=== PATIENT | female | born 1940 | race Caucasian/White ===

== ENCOUNTER 2018-05-03 13:36 | Inpatient (IN) | payer MEDICARE, MEDICAID ==
[~2018-05-03] VITALS: Ht 142.2 cm; Wt 39.9 kg
[2018-05-03] VITALS (15 sets, daily range): BP systolic 81–125; BP diastolic 43–64
[~2018-05-03 13:36] MED LIST: ASPI-807 PO; CALC1TAB91 PO; CILO50TA PO; FURO40TA5 PO; ISOS30TA6 PO; METO10TA3 PO; METO25TA6 PO; MONT10TA22 PO; PANT40TA4 PO; RANO10003 PO; SIMV10TA6 PO; URSO300C12 PO; [UNRECOGNIZED DRUG - CODE] MC; [UNRECOGNIZED DRUG - CODE] PO
--- NOTE | 2018-05-03 13:36 | NUR ---
BIB DAUGHTER FOR COUGH/CONGESTION/BODY ACHES/WEAKNESS, TO ER BED 1, HOOKED TO MMONITOR, CHANGED TO GOWN, AWAITING MD AQUINO
[2018-05-03] MEDS ORDERED: ROCURONIUM BROMIDE 50 MG/5 ML IV ONE (13:41)
[2018-05-03] MEDS ORDERED: ETOMIDATE 2 MG/ML VIAL IV ONE (13:41)
[2018-05-03] MEDS ORDERED: SUCCINYLCHOLINE CHLORIDE 20 MG/ML VIAL IV ONE (13:41)
--- NOTE | 2018-05-03 14:20 | NUR ---
DR RUBIO AT BEDSIDE FOR EVAL.
[2018-05-03] MEDS ORDERED: ALBUTEROL FS 2.5 MG/3 ML VIAL.NEB CONTNEB ONE (14:30)
[2018-05-03] MEDS ORDERED: IV NS 0.9% 1,000 ML BAG IV ONE (14:30)
[2018-05-03] MEDS ORDERED: IPRATROPIUM NEB FS 0.5 MG/2.5 ML AMPUL.NEB NEB ONE (14:30)
[2018-05-03 14:53] LABS: ABG BASE EXCESS 14.1 mmol/L; ABG OXYGEN SATURATION 96.3 % (92.0-98.5); ABG PCO2 103.9 mmHg (35.0-45.0); ABG PH 7.261 (7.350-7.450); ABG PO2 100.1 mmHg (75.0-100.0); AaDO2 6.5 mmHg; COHb 1.3 % (0.5-1.5); MetHb 0.4 % (0.0-1.5); O2Hb 94.7 % (94.0-97.0); SITE, ABG Right Radial; VENT MODE, BG NASAL CANNULA
[2018-05-03] MEDS ORDERED: MULT-447 PO (14:57)
[2018-05-03] MEDS ORDERED: DOCU-141 PO (14:57)
[2018-05-03] MEDS ORDERED: POLY17PO4 PO (14:57)
[2018-05-03] MEDS ORDERED: IPRA3AMP23 IH (14:57)
[2018-05-03] MEDS ORDERED: NA P133E RC (14:57)
[2018-05-03] MEDS ORDERED: BISA10SU8 RC (14:57)
[2018-05-03] MEDS ORDERED: LIDO30AD10 TP (14:57)
[2018-05-03] MEDS ORDERED: ATOR10TA PO (14:57)
[2018-05-03] MEDS ORDERED: CHOL10002 PO (14:57)
[2018-05-03] MEDS ORDERED: ACET-868 PO (14:57)
[2018-05-03] MEDS ORDERED: IRON1TAB PO (14:57)
[2018-05-03] MEDS ORDERED: CYAN10006 IM (14:57)
[2018-05-03] MEDS ORDERED: GUAI600T53 PO (14:57)
[2018-05-03] MEDS ORDERED: ASCO500T9 PO (14:57)
[2018-05-03] MEDS ORDERED: MAGN400O6 PO (14:57)
[2018-05-03 15:00] LABS: BASOPHILS # (AUTO) 0.1 /CMM (0.0-0.2); BASOPHILS % (AUTO) 0.6 % (0.0-2.0); EOSINOPHILS % (AUTO) 0.1 % (0.0-6.0); HEMATOCRIT 42 % (33-45); HEMOGLOBIN 13.3 g/dL (11.5-14.8); LYMPHOCYTES # (AUTO) 0.8 /CMM (0.8-4.8); LYMPHOCYTES % (AUTO) 7.1 % (20.0-44.0); MEAN CORPUSCULAR HGB CONC 32 g/dl (31.0-36.0); MEAN CORPUSCULAR VOLUME 88 fL (82-100); MONOCYTES # (AUTO) 0.9 /CMM (0.1-1.30); MONOCYTES % (AUTO) 8.6 % (2.0-12.0); NEUTROPHILS # (AUTO) 8.9 /CMM (1.8-8.9); NEUTROPHILS % (AUTO) 83.6 % (43.0-81.0); PLATELET COUNT (AUTO) 305 /CMM (150-450); RED BLOOD CELL COUNT(AUTO) 4.79 MIL/uL (4.0-5.2); WHITE BLOOD COUNT (AUTO) 10.6 K/uL (4.3-11.0)
--- NOTE | 2018-05-03 15:02 | NUR ---
OUT FOR CT SCAN
--- NOTE | 2018-05-03 15:03 | NUR ---
CALLED FOR ICU BED RES FAILURE
[2018-05-03 15:17] LABS: SERUM AMMONIA 13 umol/L (11-32)
--- NOTE | 2018-05-03 15:21 | NUR ---
DR RUBIO AT BEDSIDE FOR INTUBATION.
--- NOTE | 2018-05-03 15:22 | NUR ---
RECEIVED VERBAL ORDER FROM DR. RUBIO: ETOMIDATE 10MG IVP RH 22G SUCCINYLCHOLINE 30MG IVP RH 22G
[2018-05-03] MEDS ORDERED: PROPOFOL 100 ML ONE (15:27)
--- NOTE | 2018-05-03 15:27 | NUR ---
BEHAVIORAL HEALTH SPECIALIST AT BEDSIDE FOR REPEAT CXR
[2018-05-03 15:29] LABS: ALANINE AMINOTRANSFERASE 11 U/L (12-78); ALBUMIN 3.2 g/dL (3.4-5.0); ALCOHOL, BLOOD < 3 mg/dL (0-0); ALKALINE PHOSPHATASE 74 U/L (46-116); ASPARTATE AMINOTRANSFERASE 16 U/L (15-37); BILIRUBIN,DIRECT 0.2 mg/dL (0.0-0.2); BILIRUBIN,TOTAL 0.4 mg/dL (0.2-1.0); CALCIUM, SERUM 9.6 mg/dL (8.5-10.1); CHLORIDE 101 mmol/L (98-107); CREATININE 0.7 mg/dL (0.6-1.3); GLUCOSE 126 mg/dL (74-106); POTASSIUM 4.2 mmol/L (3.5-5.1); SODIUM SERUM 144 mmol/L (136-145); TOTAL PROTEIN, SERUM 7.2 g/dL (6.4-8.2); UREA NITROGEN, BLOOD 20 mg/dL (7-18)
[2018-05-03 15:30] LABS: CARBON DIOXIDE 43 mmol/L (21-32)
[2018-05-03] MEDS ORDERED: PROPOFOL 100 ML IV PRN (15:30)
[2018-05-03] MEDS ORDERED: methylPREDNISolone SOD SUCC 40 MG/ML VIAL IV ONE (15:30)
[2018-05-03] MEDS ORDERED: ALBUTEROL FS 2.5 MG/3 ML VIAL.NEB ONE (15:42)
[2018-05-03] MEDS ORDERED: IPRATROPIUM NEB FS 0.5 MG/2.5 ML AMPUL.NEB ONE (15:43)
--- NOTE | 2018-05-03 15:53 | NUR ---
PANEL ON-CALL PAGED
[2018-05-03] MEDS ORDERED: FUROSEMIDE 20 MG/2 ML VIAL IV ONE (16:00)
[2018-05-03] MEDS ORDERED: FUROSEMIDE 20 MG/2 ML VIAL ONE (16:16)
[2018-05-03] MEDS ORDERED: methylPREDNISolone SOD SUCC 40 MG/ML VIAL ONE (16:16)
[2018-05-03 16:19] LABS: THYROID STIMULATING HORMONE 0.957 uIU/mL (0.358-3.74)
[2018-05-03 16:32] LABS: APPEARANCE,URINE Clear (CLEAR); BILIRUBIN,URINE Negative (NEGATIVE); BLOOD, URINE Trace-intact Ery/uL (NEGATIVE); COLOR,URINE Yellow (YELLOW); KETONES,URINE Negative (NEGATIVE); LEUKOCYTE ESTERASE ,URINE Negative (NEGATIVE); NITRITE, URINE Negative (NEGATIVE); PH,URINE 5.5 (5.0-8.0); PROTEIN,URINE Trace mg/dl (NEGATIVE); UGLUCOSE Negative (NEGATIVE); UROBILINOGEN,URINE 0.2 EU/dL (0.2)
--- NOTE | 2018-05-03 16:32 | NUR ---
GOT BED 259 ICU
[2018-05-03 16:43] LABS: BACTERIA,URINE None seen /HPF (None Seen); RBC,URINE 0-2 /HPF (0-2); SQUAMOUS EPITHELIAL CELL,UR Few /HPF (None Seen); WBC,URINE 0-2 /HPF (0-3)
[2018-05-03 16:43] LABS: ABG PCO2 51.3 mmHg (35.0-45.0); ABG PH 7.446 (7.350-7.450); AaDO2 263.7 mmHg; COHb 0.6 % (0.5-1.5); MetHb 0.3 % (0.0-1.5); O2Hb 98.1 % (94.0-97.0); PEEP,BG 5 cm H2O; SITE, ABG Right Radial; VENT MODE, BG A/C; VT, ABG 300 mL
--- NOTE | 2018-05-03 16:50 | NUR ---
PT ORAL INTUBATED BY ER DR. RUBIO. WITH ETT 7.5, 20 CM AT LIPS AND CONFIRMED WITH CXR. VENT SETTING ON AC 22, VT 300, FIO2 100% PEEP 5. PT TOLERATES, NO RESPIRATORY DISTRESS NOTED. ALARM AUDIBLE, RED OUTLET PLUGGED IN, AMBU BAG AT BEDSIDE. WILL CONTINUE MONITOR THE PT.
[2018-05-03] MEDS ORDERED: MAG HYDROX/AL HYDROX/SIMETH 30 ML UDC PO PRN (17:00)
[2018-05-03] MEDS ORDERED: HYDROCODONE/APAP 5/325MG 1 EACH TABLET PO PRN (17:00)
[2018-05-03] MEDS ORDERED: ONDANSETRON HCL/PF 4 MG/2 ML VIAL IVP PRN (17:00)
--- NOTE | 2018-05-03 17:15 | NUR ---
report given to thanh of icu
[2018-05-03] MEDS: PROPOFOL 100 ML IV PRN (17:35)
--- NOTE | 2018-05-03 17:45 | NUR ---
MIXER DIAMOND POWDER NOTE RECEIVED PT INTUBATED AND SEDATED FROM ER. TRANSFERRED SAFELY TO BED. DAUGHTER AT BEDSIDE. ETT 7.5 AND 20@ THE LIP. [facility] VENT SETTINGS WELL TOLERATED AND SATURATING WELL. HOB ELEVATED AND ON ASPIRATION PRECAUTIONS. BILATERAL SOFT WRIST RESTRAINTS IN PLACE. TELE-SR 80 WITH PVC AND BBB. IV R WRIST/ L HAND CLEAN, DRY AND PATENT WITH DIP @ 15 MCG/KG/MIN. LEAL CATHETER IN PLACE AND DRAINING BY GRAVITY. WILL CONTINUE TO MONITOR.
[2018-05-03] MEDS ORDERED: PIPERACILLIN /TAZOBACTAM 3.375 G in IV D5W 50 ML IV ONE (18:00)
[2018-05-03] MEDS: methylPREDNISolone SOD SUCC 125 MG/2ML VIAL IV SCH (18:24)
[2018-05-03] MEDS: ALBUTEROL FS 2.5 MG/3 ML VIAL.NEB NEB SCH ×3 (18:35→23:05)
[2018-05-03] MEDS: IPRATROPIUM NEB FS 0.5 MG/2.5 ML AMPUL.NEB NEB SCH ×2 (20:06→23:05)
[2018-05-03] MEDS: ENOXAPARIN SODIUM 30 MG/0.3 ML DISP.SYRIN SQ SCH (21:26)
[2018-05-04] VITALS (47 sets, daily range): BP systolic 89–146; BP diastolic 39–79
[2018-05-04] MEDS: PIPERACILLIN /TAZOBACTAM 3.375 G in IV D5W 100 ML IV SCH ×3 (01:23→17:56)
[2018-05-04] MEDS: ALBUTEROL FS 2.5 MG/3 ML VIAL.NEB NEB SCH ×6 (03:07→23:03)
[2018-05-04] MEDS: IPRATROPIUM NEB FS 0.5 MG/2.5 ML AMPUL.NEB NEB SCH ×6 (03:07→23:03)
[2018-05-04 05:19] LABS: BASOPHILS % (AUTO) 0.1 % (0.0-2.0); HEMATOCRIT 37 % (33-45); HEMOGLOBIN 12.1 g/dL (11.5-14.8); LYMPHOCYTES # (AUTO) 0.5 /CMM (0.8-4.8); LYMPHOCYTES % (AUTO) 4.9 % (20.0-44.0); MEAN CORPUSCULAR HGB CONC 32 g/dl (31.0-36.0); MEAN CORPUSCULAR VOLUME 85 fL (82-100); MONOCYTES # (AUTO) 0.5 /CMM (0.1-1.30); MONOCYTES % (AUTO) 4.2 % (2.0-12.0); NEUTROPHILS # (AUTO) 9.9 /CMM (1.8-8.9); NEUTROPHILS % (AUTO) 90.8 % (43.0-81.0); PLATELET COUNT (AUTO) 254 /CMM (150-450); RED BLOOD CELL COUNT(AUTO) 4.37 MIL/uL (4.0-5.2); WHITE BLOOD COUNT (AUTO) 10.9 K/uL (4.3-11.0)
--- NOTE | 2018-05-04 05:37 | NUR ---
RT Pt orally intubated on AC [facility] vent settings t/o the night. No resp distress noted. Addendum: 05/04/18 at 0538 by RAFA LAWRENCE RT Amended: Links added.
[2018-05-04 05:48] LABS: CALCIUM, SERUM 8.6 mg/dL (8.5-10.1); CHLORIDE 101 mmol/L (98-107); CREATININE 0.8 mg/dL (0.6-1.3); GLUCOSE 149 mg/dL (74-106); MAGNESIUM 1.3 mg/dL (1.8-2.4); PHOSPHORUS 3.1 mg/dL (2.5-4.9); POTASSIUM 3.3 mmol/L (3.5-5.1); SODIUM SERUM 147 mmol/L (136-145); UREA NITROGEN, BLOOD 19 mg/dL (7-18)
[2018-05-04 05:53] LABS: CARBON DIOXIDE 40 mmol/L (21-32)
[2018-05-04 05:54] LABS: CHOLESTEROL 118 mg/dL (<200); HDL CHOLESTEROL 47 mg/dL (40-60); LDL 69 mg/dL (0-99); TRIGLYCERIDES 62 mg/dL (30-150)
--- NOTE | 2018-05-04 07:05 | NUR ---
RN NOTE RECEIVED PT ON BED, INTUBATED AND SEDATED, ETT 7.5 AND AT 20 , TOLERATING CURRENT VENT SETTLING WELL, O2 SAT %100 , ON TELE SR WITH BBB AND PVC'S , HR IN 70'S , LEAL DRINING TO GRAVITY , BILATERAL SOFT WRIST RESTRAINTS IN PLACE FOR PT SAFETY ,PT IS NPO L NARE NGT INTACT, DIPRIVAN AT 15MCG/KG/MIN RUNNING VIA R HAND IV SITE G 22, SITE CLEAN ,DRY AND INTACT, CONTINUE TO MONITOR.
--- NOTE | 2018-05-04 07:37 | NUR ---
WOUND CARE CONSULT: PT PRESENTS WITH SOME BRUISING TO UPPER AND LOWER EXTREMITIES AND BONY SACRAL AREA, PRESENT ON ADMISSION. SACRAL DIMPLE NOTED. RECOMMENDATIONS MADE FOR SKIN PROTECTION. DISCUSSED WITH NURSING STAFF. FIRST STEP LOW AIRLOSS MATTRESS ORDERED. PT CURRENTLY INTUBATED. WILL SEE PRN. NESBITT IN AGREEMENT WITH PLAN OF CARE. Addendum: 05/04/18 at 0738 by HANNAH MIDDLETON WNDNU Amended: Links added.
[2018-05-04] MEDS: FUROSEMIDE 40 MG/4 ML VIAL IV SCH ×2 (08:31→16:28)
[2018-05-04] MEDS: methylPREDNISolone SOD SUCC 125 MG/2ML VIAL IV SCH ×3 (08:32→16:28)
[2018-05-04] MEDS ORDERED: ASPIRIN 81 MG TAB.CHEW PO SCH (09:30)
[2018-05-04] MEDS: Magnesium 1GM/D5W 100ML PREMIX 100 ML IV SCH ×4 (09:48→12:50)
[2018-05-04] MEDS ORDERED: POTASSIUM CHLORIDE 20 MEQ POWDER PACKET GT ONE (10:00)
[2018-05-04] MEDS: POTASSIUM CL. PREMIX PERIPHER. 50 ML IV SCH ×2 (10:12→11:33)
[2018-05-04] MEDS ORDERED: PANTOPRAZOLE 40 MG VIAL IV SCH (11:00)
[2018-05-04] MEDS ORDERED: ENOXAPARIN SODIUM 30 MG/0.3 ML DISP.SYRIN SQ SCH (11:00)
--- NOTE | 2018-05-04 11:30 | NUR ---
RN NOTES DR ОЛЬГА PICHARDO AT THE BEDSIDE, NO OPEN AREA NOTED ON SACRUM , MEPILEX APPLIED FOR SKIN PROTECTION , CONTINUE TURNING AND REPOSITIONING Q 2 HOURS , KCI MATTRESS PLACED, SACRAL PHOTO TAKE PER DR ROLON ORDER . CONTINUE TO MONITOR .
[2018-05-04] MEDS: PANTOPRAZOLE 40 MG/PACK PACK GT SCH (11:37)
--- NOTE | 2018-05-04 12:22 | NUR ---
RT PLACED ON CPAP PS 10 PER MD CHOWDHURY, PT DID NOT TOLERATE PLACED BACK ON AC SETTINGS Addendum: 05/04/18 at 1223 by CHANTAL BARTLETT RT Amended: Links added.
[2018-05-04] MEDS: PROPOFOL 100 ML IV PRN ×2 (12:55→17:57)
[2018-05-04 17:34] LABS: ABG BASE EXCESS 16.4 mmol/L; ABG OXYGEN SATURATION 98.4 % (92.0-98.5); ABG PCO2 34.8 mmHg (35.0-45.0); ABG PH 7.657 (7.350-7.450); ABG PO2 145.9 mmHg (75.0-100.0); AaDO2 99.3 mmHg; COHb 0.2 % (0.5-1.5); MetHb 0.6 % (0.0-1.5); O2Hb 97.6 % (94.0-97.0); SITE, ABG Left Radial; VENT MODE, BG AC 22 400 40% +5
--- NOTE | 2018-05-04 18:00 | NUR ---
RN NOTES PT DAUGHTER AT THE BEDSIDE, REQUESTING TO TALK TO DR ISAIAS NESBITT NOTIFIED ,
--- NOTE | 2018-05-04 18:08 | NUR ---
RT VENT CHANGES MADE AFTER ABG RATE 0F 14 TITRATED 02 30% PER MD QARNI
--- NOTE | 2018-05-04 18:08 | NUR ---
RT PT INTUBATED WITH 7.5 ETT 20 CM AT LIP SECURED. ON MECH VENT ALARMS ON AND AUDIBLE BAG AND MASK AT HOB TXS GIVEN NO ADVERSE REACTION NOTED ATT NO RESP DISTRESS THROUGH OUT SHIFT WILL CONT TO MONITOR
--- NOTE | 2018-05-04 19:55 | NUR ---
pt received on vent via ett. settings as charted. airway secure via anchorfast. airway patent. pt alart. ambu bag at bedside. alarms set and audible. disconnect alarms checked. vent plugged in red outlet. suctioned a small amount of thin white secretions. pt recieing albuterol and atrovent. oral secretions suctioned via [place] Addendum: 05/04/18 at 1957 by LEONARDO WORTHINGTON Amended: Links added.
[2018-05-04] MEDS: ATORVASTATIN 10 MG TABLET PO SCH (21:14)
[2018-05-04] MEDS: ENOXAPARIN SODIUM 30 MG/0.3 ML DISP.SYRIN SQ SCH (21:15)
[2018-05-05] VITALS (48 sets, daily range): BP systolic 98–138; BP diastolic 39–80
[2018-05-05] MEDS: PIPERACILLIN /TAZOBACTAM 3.375 G in IV D5W 100 ML IV SCH ×3 (01:26→17:31)
[2018-05-05] MEDS: ALBUTEROL FS 2.5 MG/3 ML VIAL.NEB NEB SCH ×6 (04:10→23:40)
[2018-05-05] MEDS: IPRATROPIUM NEB FS 0.5 MG/2.5 ML AMPUL.NEB NEB SCH ×6 (04:10→23:40)
[2018-05-05 05:06] LABS: HEMATOCRIT 38 % (33-45); HEMOGLOBIN 12.3 g/dL (11.5-14.8); LYMPHOCYTES # (AUTO) 0.4 /CMM (0.8-4.8); LYMPHOCYTES % (AUTO) 2.6 % (20.0-44.0); MEAN CORPUSCULAR HGB CONC 33 g/dl (31.0-36.0); MEAN CORPUSCULAR VOLUME 83 fL (82-100); MONOCYTES # (AUTO) 0.7 /CMM (0.1-1.30); MONOCYTES % (AUTO) 5.3 % (2.0-12.0); NEUTROPHILS # (AUTO) 12.4 /CMM (1.8-8.9); NEUTROPHILS % (AUTO) 92.1 % (43.0-81.0); PLATELET COUNT (AUTO) 263 /CMM (150-450); RED BLOOD CELL COUNT(AUTO) 4.52 MIL/uL (4.0-5.2); WHITE BLOOD COUNT (AUTO) 13.5 K/uL (4.3-11.0)
[2018-05-05 05:23] LABS: CALCIUM, SERUM 8.6 mg/dL (8.5-10.1); CARBON DIOXIDE 39 mmol/L (21-32); CHLORIDE 97 mmol/L (98-107); CREATININE 0.7 mg/dL (0.6-1.3); GLUCOSE 142 mg/dL (74-106); MAGNESIUM 2.6 mg/dL (1.8-2.4); PHOSPHORUS 3.3 mg/dL (2.5-4.9); POTASSIUM 3.4 mmol/L (3.5-5.1); SODIUM SERUM 143 mmol/L (136-145); UREA NITROGEN, BLOOD 21 mg/dL (7-18)
--- NOTE | 2018-05-05 07:00 | NUR ---
RN NOTES RECEIVED PT ON BED, INTUBATED ,SEDATED, ON DIPRIVAN AT 25MCG/KG/MIN, TOLERATING CURRENT VENT SETTING WELL, ORAL AND ET SUCTIONING DONE, ON TELE SR HR IN 80'S , LEAL DRINING TO GRAVITY WITH YELLOW URINE, L NARE NGT CLAMPED AT THIS TIME . AWAITING FOR NUTRITION CONSULTATION TO START TF , R HAND AND R FA AND L AC IV SITES CLEAN ,DRY AND INTACT, SR UP x3, CALL LIGHT WITHIN EASY REACH, BED LOCKED AND IN LOWEST POSITION, CONTINUE TO MONITOR .
[2018-05-05] MEDS ORDERED: ASPIRIN 81 MG TAB.CHEW NG SCH (07:59)
[2018-05-05] MEDS ORDERED: POTASSIUM CHLORIDE 20 MEQ POWDER PACKET NG ONE (08:00)
[2018-05-05] MEDS: methylPREDNISolone SOD SUCC 125 MG/2ML VIAL IV SCH ×3 (08:24→16:27)
[2018-05-05] MEDS: PANTOPRAZOLE 40 MG/PACK PACK GT SCH (08:24)
[2018-05-05] MEDS: FUROSEMIDE 40 MG TABLET NG SCH (08:26)
[2018-05-05] MEDS ORDERED: acetaZOLAMIDE 250 MG TABLET NG ONE (08:30)
[2018-05-05] MEDS ORDERED: JEVITY 1.2 CAL 1,000 ML BOTTLE GT PRN (09:00)
--- NOTE | 2018-05-05 09:07 | NUR ---
PT RECEIVED ORALLY INTUBATED ON MECHANICAL VENT W/ NOTED SETTINGS PER MD ORDER. VENT ALARMS CHECKED, VENT IN RED OUTLET, AMBUBAG AT BEDSIDE. PT SX'ED AND LAVAGED PRN. MEDS GIVEN INLINE PER MD ORDER. ETT CLEAN, PATENT, SECURED W/ ANCHOFAST. PLAN IS TO CONTINUE CARE UNDER CURRENT MD ORDERS AND MONITOR FOR CHANGES. Addendum: 05/05/18 at 0907 by TAI DOSS RT Amended: Links added.
[2018-05-05] MEDS: PROPOFOL 100 ML IV PRN ×2 (09:16→20:45)
[2018-05-05 09:54] LABS: ABG OXYGEN SATURATION 96.2 % (92.0-98.5); ABG PCO2 39.8 mmHg (35.0-45.0); ABG PH 7.564 (7.350-7.450); ABG PO2 84.2 mmHg (75.0-100.0); AaDO2 82.9 mmHg; COHb 0.6 % (0.5-1.5); MetHb 0.4 % (0.0-1.5); O2Hb 95.2 % (94.0-97.0); PEEP,BG 5 cm H2O; SITE, ABG Right Radial; VENT MODE, BG AC 14 400 +5 30%; VT, ABG 400 mL
--- NOTE | 2018-05-05 14:00 | NUR ---
RN NOTES DR MCBRIDE NOTIFED REGARDING ABG RESULTS, NEW ORDER RECEIVED, CONTINUE TO MONITOR .
--- NOTE | 2018-05-05 14:14 | NUR ---
RN NOTES CALL RECEIVED FROM PT'S DAUGHTER ETIENNE .SHE STATED THAT HER MOTHER HAS BROKEN PELVIS AND LEG AND SHE RECEIVED THIS RESULTS ON HER VOICE MAIL TODAY FROM HER MOTHER DOCTOR OFFICE . SHE WANTS TO TALK TO THE PRIMARY CARE DOCTOR AT [facility] . SUMMER MARIE NOTIFED TO CONTACT ETIENNE REGARDING HER CONCERN. PT STABLE AT THIS TIME ,CONTINUE TO MONITOR.
--- NOTE | 2018-05-05 16:00 | NUR ---
RN NOTES DR MCBRIDE NOTIFED REGARDING ABG RESULTS ,NEW ORDER RECEIVED , CONTINUE TO MONITOR.
--- NOTE | 2018-05-05 18:52 | NUR ---
RN NOTES PT REMAINS INTUBATED, RESTLESS AND AGITATED AT TIMES , DIPRIVAN AT 45 MCG/KG/MIN RUNNING AT THIS TIME VIA L AC IV SITE, TOLERATING TF AT 45CC /HR VIA NGT TUBE WELL, NO RESIDUAL NOTED, FAMILY AT THE BEDSIDE, SR UP x3,WILL ENDOSE TO SALES TRAINING MANAGER NURSE FOR CONTINUITY OF CARE .
--- NOTE | 2018-05-05 20:00 | NUR ---
RN/ICU NOTES: RECEIVED PT. IN BED W/ HOB ELEVATED. PT. W/ ETT 7.5/20 CM AT LIP. VENT SETTING TOLERATING WELL. PT. IS ALERT TO NAME W/ EYES OPEN AND TRACKS. ON TELE MONITOR W/ SR. W/ NGT TO LT. NARES PATENT AND INTACT W/ NO RESIDUAL NOTED. W/ JEVITY 1.2 @ 45 CC/HR TOLERATING WELL. W/ SD. SOFT WRIST RESTRAINTS. PT. IS ON DIPRIVAN @ 45 MCG/KG/MIN RUNNING . PT. IS RESTLESS AND KEEPS TRYING TO PULL OUT HER IV LINES /TUBBING. F/C PATENT AND INTACT DRAINING VIA GRAVITY. WILL CONTINUE TO MONITOR.
[2018-05-05] MEDS: ATORVASTATIN 10 MG TABLET PO SCH (21:09)
[2018-05-05] MEDS: ENOXAPARIN SODIUM 30 MG/0.3 ML DISP.SYRIN SQ SCH (21:10)
[2018-05-06] VITALS (49 sets, daily range): BP systolic 99–149; BP diastolic 49–82
[2018-05-06] MEDS: PIPERACILLIN /TAZOBACTAM 3.375 G in IV D5W 100 ML IV SCH ×3 (01:15→17:02)
[2018-05-06] MEDS: ALBUTEROL FS 2.5 MG/3 ML VIAL.NEB NEB SCH ×6 (03:35→23:55)
[2018-05-06] MEDS: IPRATROPIUM NEB FS 0.5 MG/2.5 ML AMPUL.NEB NEB SCH ×6 (03:35→23:55)
[2018-05-06 05:07] LABS: HEMATOCRIT 36 % (33-45); HEMOGLOBIN 11.8 g/dL (11.5-14.8); LYMPHOCYTES # (AUTO) 0.3 /CMM (0.8-4.8); LYMPHOCYTES % (AUTO) 2.7 % (20.0-44.0); MEAN CORPUSCULAR HGB CONC 32 g/dl (31.0-36.0); MEAN CORPUSCULAR VOLUME 85 fL (82-100); MONOCYTES # (AUTO) 0.7 /CMM (0.1-1.30); MONOCYTES % (AUTO) 5.4 % (2.0-12.0); NEUTROPHILS # (AUTO) 11.4 /CMM (1.8-8.9); NEUTROPHILS % (AUTO) 91.9 % (43.0-81.0); PLATELET COUNT (AUTO) 251 /CMM (150-450); WHITE BLOOD COUNT (AUTO) 12.4 K/uL (4.3-11.0)
[2018-05-06 05:19] LABS: CALCIUM, SERUM 8.4 mg/dL (8.5-10.1); CARBON DIOXIDE 34 mmol/L (21-32); CHLORIDE 101 mmol/L (98-107); CREATININE 0.8 mg/dL (0.6-1.3); GLUCOSE 141 mg/dL (74-106); SODIUM SERUM 143 mmol/L (136-145); UREA NITROGEN, BLOOD 33 mg/dL (7-18)
--- NOTE | 2018-05-06 07:19 | NUR ---
RN/ICU NOTES: PAGED DR. ESPARZA REGARDING BLOODY URINE. REPORT GIVEN TO NEXT SHIFT NURSE FOR CRYSTAL.
[2018-05-06] MEDS ORDERED: POTASSIUM CHLORIDE 20 MEQ POWDER PACKET GT ONE (07:30)
[2018-05-06] MEDS: POTASSIUM CL. PREMIX PERIPHER. 50 ML IV SCH ×2 (07:51→09:46)
--- NOTE | 2018-05-06 09:30 | NUR ---
RN NOTE AT 0730 RECEIVED PT FROM HOUSE WORKER GENERAL NURSE, PT AOX1. FOLLOWS COMMANDS, ON MECH VENT AC MODE, BLOODY SPUTUM NOTED IN ETT, AND BLOODY TINGED URINE IN LEAL CATHETER. DIPRIVAN RUNNING, PLANNED TO WEAN OF VENT ON SIMV MODE. OG TUBE IN PLACE, AND CHECKED FOR PLACEMENT, NO RESIDUALS, FEEDING RUNNING. SD SOFT WRIST RESTRAINTS ARE IN PLACE, NO CIRCULATION IMPAIRMENT. IV SITES INTACT, FLUIDS RUNNING. [address] SEEN BY DR KAPADIA, AWARE ABOUT BLEEDING FROM ETT AND LEAL, ORDERED TO HOLD LOVENOX TODAY. 0915 PT UNABLE TO TOLERATE WEANING AT THIS TIME, CANCEL BY DR MCBRIDE, DUE TO BLEEDING FROM ETT. 1030 BLEEDING SEEMS TO STOP AT THIS TIME, PER DR MCBRIDE TO MINIMIZE SUCTIONS. REPORT GIVEN TO MCKAY FOR CRYSTAL.
[2018-05-06] MEDS: PROPOFOL 100 ML IV PRN ×2 (09:46→17:03)
--- NOTE | 2018-05-06 09:46 | NUR ---
weaning cancelled per dr. torres due to change of condition. Addendum: 05/06/18 at 0946 by CALE MANN RT Amended: Links added.
[2018-05-06] MEDS: PANTOPRAZOLE 40 MG/PACK PACK GT SCH (09:47)
[2018-05-06] MEDS: FUROSEMIDE 40 MG TABLET NG SCH (09:47)
[2018-05-06] MEDS: methylPREDNISolone SOD SUCC 125 MG/2ML VIAL IV SCH ×3 (09:52→17:02)
[2018-05-06 10:54] LABS: ABG BASE EXCESS 6.7 mmol/L; ABG OXYGEN SATURATION 96.7 % (92.0-98.5); ABG PCO2 47.9 mmHg (35.0-45.0); ABG PH 7.441 (7.350-7.450); ABG PO2 97.6 mmHg (75.0-100.0); COHb 0.4 % (0.5-1.5); MetHb 0.6 % (0.0-1.5); O2Hb 95.7 % (94.0-97.0); PEEP,BG 5 cm H2O; SITE, ABG Right Radial; VT, ABG 350 mL
--- NOTE | 2018-05-06 18:37 | NUR ---
1400H rec'd report from PEPE Lora RN for CRYSTAL. Pt is sedated, on Diprivan at 40 mcg/kg/min infusing well on L AC G20. On MV via ETT, AC mode (per report held weaning trials this AM d/t hemoptysis). No SOB, sating at 100%. On cont GTF Jevity 1.2 at 45 cc/hr infusing well, no residual noted w/in shift. IV line access kept patent & intact w/ no s/sx of infection/infiltration. FC draining to BSB, noted pink tinged in the bag. Anticoagulants were DC'd. B soft wrist restraints kept on d/t episode of pulling out tubes. 1630H RN spoke w/ pt's dtr at bedside & requested if XR can be on pt's B knees, legs & ft. Roger BUSINESS EXECUTIVE made aware & ordered for the said XR. Dtr informed. 1845H Pt still noted bright red secretions from ET upon suctioning. RT used cold saline for suctioning. Safety precautions maintained at all times. Bed in lowest & locked pos. Will endorse to PM RN for CRYSTAL.
--- NOTE | 2018-05-06 19:30 | NUR ---
APPLIED PSYCHOLOGY CHAIR: RECEIVED ORALLY INTUBATED PT TO VENT WT SETTINGS ORDERED. SEDATED ON DIPRIVAN AT 50MCG/KG/MIN, ABLE TO FOLLOW SIMPLE COMMANDS. NO ACUTE DISTRESS, NO EVIDENCE OF DISCOMFORT. SR WT OCCASIONAL PVCs ON DIRECTOR OF PRECLINICAL RESEARCH. AFEBRILE. LT. NGT PLACEMENT VERIFIED VIA AUSCULTATION RUNNING JEVITY 1.2 AT 45ML/HR WT NO RESIDUAL. NO S/S OF IV INFILTRATIONS. F/C PATENT AND INTACT DRAINING JOSE COLORED URINE TO GRAVITY. WT EPISODES OF TRACHEAL BLEEDING UPON SUCTIONING. MODERATE AMT. OF PINK TINGED FROTHY NASAL DRAINAGE NOTED WELL. HOB ON HIGH STANLEY'S. BILAT. SOFT WRIST RESTRAINTS IN PLACE FOR EPISODES OF TRYING TO REACH FOR TUBES. SKIN AND CIRCULATION WNL. SAFETY PRECAUTION NOTED AT ALL TIMES. WILL CONTINUE TO MONITOR.
--- NOTE | 2018-05-06 20:04 | NUR ---
PT RECEIVED ORALLY INTUBATED WITH 7.5 ETT SECURED@ 20 CM ON MECHANICAL VENT W/ NOTED SETTINGS PER MD ORDER. VENT ALARMS CHECKED, VENT PLUGGED INTO RED OUTLET, AMBU BAG AT BEDSIDE. BREATHING TX GIVEN PER MD ORDER, NO ADVERSE REACTION NOTED. SUCTIONED COPIOUS AMOUNT OF BLOODY SECRETIONS. ETT PATENT AND SECURED. NO RESPIRATORY DISTRESS NOTED AT THIS TIME . WILL CONTINUE TO MONITOR THE PT.
[2018-05-06] MEDS: JEVITY 1.2 CAL 1,000 ML BOTTLE GT PRN (20:06)
[2018-05-06] MEDS: ATORVASTATIN 10 MG TABLET PO SCH (22:05)
[2018-05-07] VITALS (57 sets, daily range): BP systolic 36–161; BP diastolic 18–92
[2018-05-07] MEDS: PIPERACILLIN /TAZOBACTAM 3.375 G in IV D5W 100 ML IV SCH ×3 (01:52→17:22)
[2018-05-07] MEDS: ALBUTEROL FS 2.5 MG/3 ML VIAL.NEB NEB SCH ×6 (04:08→23:04)
[2018-05-07] MEDS: PROPOFOL 100 ML IV PRN ×2 (04:08→12:38)
[2018-05-07] MEDS: IPRATROPIUM NEB FS 0.5 MG/2.5 ML AMPUL.NEB NEB SCH ×6 (04:08→23:04)
[2018-05-07 05:06] LABS: BASOPHILS % (AUTO) 0.1 % (0.0-2.0); HEMATOCRIT 38 % (33-45); HEMOGLOBIN 12.1 g/dL (11.5-14.8); LYMPHOCYTES # (AUTO) 0.6 /CMM (0.8-4.8); LYMPHOCYTES % (AUTO) 4.5 % (20.0-44.0); MEAN CORPUSCULAR HGB CONC 32 g/dl (31.0-36.0); MEAN CORPUSCULAR VOLUME 85 fL (82-100); MONOCYTES # (AUTO) 0.8 /CMM (0.1-1.30); MONOCYTES % (AUTO) 6.1 % (2.0-12.0); NEUTROPHILS # (AUTO) 12.1 /CMM (1.8-8.9); NEUTROPHILS % (AUTO) 89.3 % (43.0-81.0); PLATELET COUNT (AUTO) 253 /CMM (150-450); RED BLOOD CELL COUNT(AUTO) 4.41 MIL/uL (4.0-5.2); WHITE BLOOD COUNT (AUTO) 13.6 K/uL (4.3-11.0)
[2018-05-07 05:15] LABS: CALCIUM, SERUM 8.9 mg/dL (8.5-10.1); CARBON DIOXIDE 35 mmol/L (21-32); CHLORIDE 102 mmol/L (98-107); CREATININE 0.8 mg/dL (0.6-1.3); GLUCOSE 150 mg/dL (74-106); MAGNESIUM 2.6 mg/dL (1.8-2.4); PHOSPHORUS 3.4 mg/dL (2.5-4.9); POTASSIUM 4.4 mmol/L (3.5-5.1); SODIUM SERUM 142 mmol/L (136-145); UREA NITROGEN, BLOOD 35 mg/dL (7-18)
--- NOTE | 2018-05-07 05:50 | NUR ---
METAL PICKLING EQUIPMENT OPERATOR: NO SIGNIFICANT CRYSTAL DURING THE SHIFT. VS WITHIN BASELINE. STILL NOTED WT INTERMITTENT TRACHEAL BLEED UPON SUCTIONING. STILL ON DIPRIVAN AT 50MCG/MG/MIN. ALL NEEDS MET. SAFETY PRECAUTIONS NOTED AT ALL TIMES.
[2018-05-07] MEDS: PANTOPRAZOLE 40 MG/PACK PACK GT SCH (08:28)
[2018-05-07] MEDS: FUROSEMIDE 40 MG TABLET NG SCH (08:28)
[2018-05-07] MEDS: methylPREDNISolone SOD SUCC 125 MG/2ML VIAL IV SCH ×3 (08:28→16:33)
--- NOTE | 2018-05-07 09:14 | NUR ---
received pt from shift nurse manager, sedated on Diprivan at 45mcg, SR, on the vent, lungs congested, bloody when suctioned, NG to feeding tolerates well, f/c OK output, v/s stable, no pain, pt turned and repositioned.
--- NOTE | 2018-05-07 13:21 | NUR ---
weaning trial not done due to bleeding on her et tube. Addendum: 05/07/18 at 1322 by CALE MANN RT Amended: Links added.
--- NOTE | 2018-05-07 16:19 | NUR ---
pt is resting in the bed, sedated on Diprivan at 35mcg, SR, tolerates feeding, OK urine output, v/s stable, no pain, pt cleaned, changed and repositioned q2hrs.
--- NOTE | 2018-05-07 17:10 | NUR ---
NOTED SIGNIFICANT BLEEDING ON ETT-DR. MCBRIDE MADE AWARE. ORDERS RECEIVED TO GIVE 1 PLATELET, CONSENT FOR BRONCHOSCOPY TOMORROW. ATTEMPTED TO CALL PATIENT DAUGHTER -LEFT MESSAGE.
[2018-05-07] MEDS ORDERED: NOREPINEPHRINE 8 MG in IV D5W 500 ML IV PRN (17:30)
--- NOTE | 2018-05-07 17:35 | NUR ---
PRETTY HILL MADE AWARE OF DECREASED BLOOD PRESSURE. PRESENT CONDITION. ORDER FOR LEVOPHED OBTAINED , DAUGHTER AT BEDSIDE-UPDATED WITH PATIENT CONDITION, DISCUSSED PLAN OF CARE. CONSENT OBTAINED FOR BLOOD TRANSFUSION AND BRONCHOSCOPY IN AM.
--- NOTE | 2018-05-07 17:37 | NUR ---
pt still bleeding, Dr Donahue called, order for 1 Platelet and consent for bronchoscopy received. pt BP is low OUTREACH NURSE contacted order for levo received.
[2018-05-07 17:54] LABS: HEMATOCRIT 37 % (33-45); MEAN CORPUSCULAR HGB CONC 32 g/dl (31.0-36.0); MEAN CORPUSCULAR VOLUME 86 fL (82-100); MONOCYTES # (AUTO) 0.2 /CMM (0.1-1.30); MONOCYTES % (AUTO) 1.5 % (2.0-12.0); NEUTROPHILS # (AUTO) 11.4 /CMM (1.8-8.9); NEUTROPHILS % (AUTO) 90.5 % (43.0-81.0); PLATELET COUNT (AUTO) 286 /CMM (150-450); RED BLOOD CELL COUNT(AUTO) 4.36 MIL/uL (4.0-5.2); WHITE BLOOD COUNT (AUTO) 12.6 K/uL (4.3-11.0)
--- NOTE | 2018-05-07 18:23 | NUR ---
NO PEEP ORDER DUE TO LOW BP. Addendum: 05/07/18 at 1824 by CALE MANN RT Amended: Links added.
--- NOTE | 2018-05-07 19:00 | NUR ---
SCREEN WRITER NOTES RECEIVED PATIENT ORALLY INTUBATED TO THE VENTILATOR ON AC MODE,NOT IN NAY DISTRESS BUT SLIGHTLY TACHYPNEIC,STILL NOTED SOME BLEEDING FROM THE OET .ON MILD SEDATION WITH PROPOFOL DRIP,BUT PATIENT EASILY AROUSABLE,ALERT ONCE AWAKENS,SEEMS TO UNDERSTAND WHEN DAUGHTER IS TALKING TO HER,TRIES TO TALK.ON LEVOHED DRIP FOR BP SUPPORT INFUSING VIA JN MIDLINE.WITH ON GOING FEEDING VIA OGT (JEVITY 1.2 @ 35 ML/HR). COMFORT CARE DONE ,NEEDS ATTENDED,FAMILY AT BEDSIDE.FOR BRONCHOSCOPY IN AM ,AND FOR PLATELET TRANSFUSION ONCE BLOOD PRODUCT IS AVAILABLE(WILL FOLLOW UP WITH BLOOD BANK)
--- NOTE | 2018-05-07 20:45 | NUR ---
CALLED BLOOD BANK TO FOLLOW UP IF PLATELET IS NOW AVAILABLE,BUT PER BLOOD BANK THE ORDER WAS CANCELLED.CHECKED THROUGH THE NOTE OF MORNING SHIFT RN (NO NOTES REGARDING CANCELLING THE TRANSFUSION) AND WHAT WAS ENDORSED TO ME IS TO GIVE 1 UNIT OF PLATELET. 2100 ORDER WAS ENTERED AGAIN FOR 1 UNIT PLATELET TRANSFUSION TONIGHT.PATIENT STILL BLEEDING (FRESH RED BLOOD)FROM THE ET TUBE.
[2018-05-07] MEDS: ATORVASTATIN 10 MG TABLET PO SCH (22:00)
--- NOTE | 2018-05-07 23:05 | NUR ---
PLATELET TRANSFUSION STARTED. 2304 PATIENT GAGING AND COUGHING AND VOMITED A LOT THAT LOOKS LIKE FEEDING FORMULA,FEEDING STOPPED.PATIENT STARTED TO BLEED A LOT FROM THE ET TUBE,SUCTIONING BLOOD CLOTS AND FRESH RED BLOOD,LAVAGE WITH COLD SALINE FLUSH BY RT.BP ALSO DROPPED IN THE 80'S SYSTOLIC, HEART RATE ABOVE 100'S BUT DID NOT DESATURATE,BUT WITH HIGH PEAK PRESSURES OF 80'S.
[2018-05-08] VITALS (83 sets, daily range): BP systolic 48–166; BP diastolic 17–90
--- NOTE | 2018-05-08 | NUR ---
FEEDING STILL ON HOLD SINCE PATIENT IS FOR BRONCHOSCOPY IN AM,WILL MAINTAIN NPO
--- NOTE | 2018-05-08 00:20 | NUR ---
PLATELET TRANSFUSION OVER ,NO SIGNS AND SYMPTOMS OF ANY TRANSFUSION REACTION.
--- NOTE | 2018-05-08 02:00 | NUR ---
PATIENT VOMITED AGAIN SOME FEEDING MATERIAL,SUCTIONED,.STILL WITH BLEEDING FROM THE ET WHEN SUCTIONED BUT TO A LESSER DEGREE.
[2018-05-08] MEDS: PIPERACILLIN /TAZOBACTAM 3.375 G in IV D5W 100 ML IV SCH ×3 (02:10→17:01)
[2018-05-08] MEDS: ALBUTEROL FS 2.5 MG/3 ML VIAL.NEB NEB SCH ×6 (03:32→23:53)
[2018-05-08] MEDS: IPRATROPIUM NEB FS 0.5 MG/2.5 ML AMPUL.NEB NEB SCH ×6 (03:32→23:53)
--- NOTE | 2018-05-08 04:00 | NUR ---
STABLE FOR NOW ,NO FURTHER COPIOUS AMOUNT OF BLEEDING FROM ET TUBE.BP STABLE.KEPT MODERATELY SEDATED ON PROPOFOL DRIP AT 12 MCG/KG/MIN.PATIENT STILL AROUSABLE.
[2018-05-08 04:08] LABS: HEMATOCRIT 30 % (33-45); HEMOGLOBIN 9.6 g/dL (11.5-14.8); LYMPHOCYTES # (AUTO) 0.4 /CMM (0.8-4.8); MEAN CORPUSCULAR HGB CONC 32 g/dl (31.0-36.0); MEAN CORPUSCULAR VOLUME 85 fL (82-100); MONOCYTES # (AUTO) 0.6 /CMM (0.1-1.30); MONOCYTES % (AUTO) 3.1 % (2.0-12.0); NEUTROPHILS # (AUTO) 18.8 /CMM (1.8-8.9); NEUTROPHILS % (AUTO) 94.9 % (43.0-81.0); PLATELET COUNT (AUTO) 337 /CMM (150-450); RED BLOOD CELL COUNT(AUTO) 3.48 MIL/uL (4.0-5.2); WHITE BLOOD COUNT (AUTO) 19.8 K/uL (4.3-11.0)
[2018-05-08 04:14] LABS: CALCIUM, SERUM 8.4 mg/dL (8.5-10.1); CARBON DIOXIDE 37 mmol/L (21-32); CHLORIDE 100 mmol/L (98-107); GLUCOSE 142 mg/dL (74-106); POTASSIUM 4.1 mmol/L (3.5-5.1); SODIUM SERUM 141 mmol/L (136-145); UREA NITROGEN, BLOOD 48 mg/dL (7-18)
--- NOTE | 2018-05-08 07:21 | NUR ---
RT Pt received orally intubated with a 7.5 at 21cm at the lip line. Pt is responds to stimuli when sx'd. Vent alarms are set and audible with BVM by bedside. COST SPECIALIST cuff pressure noted. Vent is plugged into red outlet. Sx'd large thick/thin blood tinged with some blood clots. Addendum: 05/08/18 at 1826 by DAVID READ RT Amended: Links added.
[2018-05-08] MEDS ORDERED: LIDOCAINE 2% JEL 5 ML TUBE MC ONE (07:30)
[2018-05-08 08:40] LABS: ABG BASE EXCESS 5.2 mmol/L; ABG OXYGEN SATURATION 87.3 % (92.0-98.5); ABG PCO2 79.1 mmHg (35.0-45.0); ABG PH 7.252 (7.350-7.450); ABG PO2 65.7 mmHg (75.0-100.0); AaDO2 568.2 mmHg; COHb 0.3 % (0.5-1.5); MetHb 0.5 % (0.0-1.5); O2Hb 86.6 % (94.0-97.0); PEEP,BG 0 cm H2O; SITE, ABG Right Radial; VT, ABG 350 mL
[2018-05-08] MEDS: PANTOPRAZOLE 40 MG/PACK PACK GT SCH (08:45)
[2018-05-08] MEDS: FUROSEMIDE 40 MG TABLET NG SCH (08:45)
[2018-05-08] MEDS: methylPREDNISolone SOD SUCC 125 MG/2ML VIAL IV SCH ×3 (08:45→17:00)
--- NOTE | 2018-05-08 09:25 | NUR ---
received pt from day shift, on Diprivan at 10mcg, SR, bleeding from ETT, at one point HR went up to 170- 190, SBP down to 65- 71, RR 44, pt back on levo, Diprivan increased, Dr Donahue at the bedside, possible bronch today. pt is stable now, very little bleeding noted, BP stable, HR 102-105, ST, GT clamped, f/c OK output, restraints on, v/s stable, no pain, pt turned and repositioned.
[2018-05-08 10:33] LABS: ABG BASE EXCESS 7.7 mmol/L; ABG OXYGEN SATURATION 99.1 % (92.0-98.5); ABG PCO2 55.5 mmHg (35.0-45.0); ABG PH 7.401 (7.350-7.450); ABG PO2 490.2 mmHg (75.0-100.0); AaDO2 167.3 mmHg; COHb 0.3 % (0.5-1.5); MetHb 0.6 % (0.0-1.5); O2Hb 98.2 % (94.0-97.0); PEEP,BG 0 cm H2O; SITE, ABG Right Radial; VT, ABG 400 mL
--- NOTE | 2018-05-08 13:10 | NUR ---
bronchoscopy done, pt tolerated it well. pt sedated on Diprivan at 35mcg, receiving levo at 10mcg, SR, v/s stable, no pain, pt turned and repositioned q2hrs, family at the bedside.
[2018-05-08] MEDS: JEVITY 1.2 CAL 1,000 ML BOTTLE GT PRN (14:41)
[2018-05-08] MEDS: PROPOFOL 100 ML IV PRN (14:41)
[2018-05-08] MEDS: NOREPINEPHRINE 8 MG in IV D5W 500 ML IV PRN (15:46)
--- NOTE | 2018-05-08 16:25 | NUR ---
pt sedated on Diprivan at 40mcg, SR, receiving levo at 10mcg, no bleeding, tolerates feeding, f/c OK output, v/s stable, no pain, pt cleaned, changed and repositioned q2hrs.
--- NOTE | 2018-05-08 19:21 | NUR ---
CONVERTING OPERATOR. INITIAL ASSESSMENT. RECEIVED THE PT REST ON THE BED ORALLY INTUBATED. SEDATED WITH DIPRIVAN. ETT 7.5,AC 14,TV 350,FIO2 50%. SAT 98%, NO ACUTE DISTRESS NOTED. MARINE AIR GROUND TASK FORCE PLANNERS SHOWING NSR. IV RT UPPER ARM MID LINE DIPRIVAN 40MCG/KG/MIN,LEVOPHED 10MCG/MIN, FC PATENT, URINE DRAINING, LT NARE NGT INTACT, JVITY 356ML/H, SD SOFT WRIST RESTRAINT CHECKED AND RELEASED, NO INJURY OR REDNESS NOTED. HOB ELEVATED. WILL CONTINUE TO MONITOR VITALS.,
--- NOTE | 2018-05-08 19:50 | NUR ---
PT RECEIVED ORALLY INTUBATED WITH 7.5 ETT SECURED@ 20 CM ON MECHANICAL VENT W/ NOTED SETTINGS PER MD ORDER. VENT ALARMS CHECKED, VENT PLUGGED INTO RED OUTLET, AMBU BAG AT BEDSIDE. PT SUCTIONED AND LAVAGED PRN. BREATHING TX GIVEN PER MD ORDER, NO ADVERSE REACTION NOTED. ETT PATENT AND SECURED. VALUE STREAM LEADER CUFF PRESSURE NOTED. NO RESPIRATORY DISTRESS NOTED AT THIS TIME . WILL CONTINUE TO MONITOR THE PT
[2018-05-08] MEDS: ATORVASTATIN 10 MG TABLET PO SCH (21:50)
[2018-05-09] VITALS (72 sets, daily range): BP systolic 78–182; BP diastolic 44–101
[2018-05-09] MEDS: PROPOFOL 100 ML IV PRN ×3 (00:07→16:06)
[2018-05-09] MEDS: PIPERACILLIN /TAZOBACTAM 3.375 G in IV D5W 100 ML IV SCH ×3 (01:06→17:25)
[2018-05-09] MEDS: IPRATROPIUM NEB FS 0.5 MG/2.5 ML AMPUL.NEB NEB SCH ×6 (03:19→23:52)
[2018-05-09] MEDS: ALBUTEROL FS 2.5 MG/3 ML VIAL.NEB NEB SCH ×6 (03:20→23:52)
--- NOTE | 2018-05-09 03:38 | NUR ---
DRAWER IN PLAIN LOOM. AM CARE, ORAL CARE, BED BATH GIVEN. LINEN CHANGED, REMAINING SAME VENT SETTING TOLERATED WELL. SAT 99%. MANAGER HELPDESK SHOWING NSR. IV RT UPPER ARM MID LINE. LEVOPHED 10MCG/MIN, DIPRIVAN 40MCG/KG/MIN. FC PATENT. SD SOFT WRIST RESTRAINT CHECKED AND RELEASED. NO INJURY OR REDNESS NOTED. DURING SHIFT NO ACTIVE BLEEDING NOTED. WILL CONTINUE TO MONITOR VITALS.
[2018-05-09] MEDS: NOREPINEPHRINE 8 MG in IV D5W 500 ML IV PRN ×2 (03:47→17:34)
[2018-05-09 05:50] LABS: CALCIUM, SERUM 8.3 mg/dL (8.5-10.1); CARBON DIOXIDE 31 mmol/L (21-32); CHLORIDE 95 mmol/L (98-107); CREATININE 1.4 mg/dL (0.6-1.3); GLUCOSE 224 mg/dL (74-106); POTASSIUM 4.1 mmol/L (3.5-5.1); SODIUM SERUM 136 mmol/L (136-145); UREA NITROGEN, BLOOD 63 mg/dL (7-18)
[2018-05-09 05:54] LABS: BASOPHILS % (AUTO) 0.1 % (0.0-2.0); HEMATOCRIT 24 % (33-45); HEMOGLOBIN 8.1 g/dL (11.5-14.8); LYMPHOCYTES # (AUTO) 0.7 /CMM (0.8-4.8); LYMPHOCYTES % (AUTO) 3.8 % (20.0-44.0); MEAN CORPUSCULAR HGB CONC 33 g/dl (31.0-36.0); MEAN CORPUSCULAR VOLUME 83 fL (82-100); MONOCYTES % (AUTO) 5.1 % (2.0-12.0); NEUTROPHILS # (AUTO) 17.5 /CMM (1.8-8.9); PLATELET COUNT (AUTO) 336 /CMM (150-450); RED BLOOD CELL COUNT(AUTO) 2.92 MIL/uL (4.0-5.2); WHITE BLOOD COUNT (AUTO) 19.3 K/uL (4.3-11.0)
[2018-05-09] MEDS: methylPREDNISolone SOD SUCC 125 MG/2ML VIAL IV SCH ×3 (08:24→17:25)
[2018-05-09] MEDS: PANTOPRAZOLE 40 MG/PACK PACK GT SCH (08:24)
--- NOTE | 2018-05-09 08:32 | NUR ---
RT PATIENT REC'D ORALLY INTUBATED ON [facility] VENT WITH ORDERED SETTINGS. VENT ALARMS CHECKED + AUDIBLE. PATIENT IN CRITICAL CONDITION. AMBU BAG AT HOB Addendum: 05/09/18 at 1635 by TEODORO PARKS RT Amended: Links added.
--- NOTE | 2018-05-09 08:55 | NUR ---
received pt from cnc machinist 2nd shift, sedated on Diprivan at 40mcg, SR, receiving levo at 6mcg, no bleeding noted, on the vent, lungs partially congested, no edema, NGT to feeding tolerates well, f/c OK output, restraints on, v/s stable, no pain, pt turned and repositioned.
[2018-05-09 09:14] LABS: ABG BASE EXCESS 8.4 mmol/L; ABG OXYGEN SATURATION 97.5 % (92.0-98.5); ABG PCO2 50.8 mmHg (35.0-45.0); ABG PH 7.438 (7.350-7.450); AaDO2 104.8 mmHg; COHb 0.6 % (0.5-1.5); MetHb 0.9 % (0.0-1.5); PEEP,BG 0 cm H2O; SITE, ABG Left Radial; VT, ABG 400 mL
--- NOTE | 2018-05-09 16:30 | NUR ---
pt is resting in the bed, sedated on Diprivan at 40mcg, receiving levo at 6mcg, SR, no bleeding, tolerates feeding, good urine output, v/s stable, no pain, pt cleaned, changed and repositioned q2hrs.
[2018-05-09] MEDS: FLUCONAZOLE (100 MG) 100 MG TABLET PO SCH (18:19)
[2018-05-09] MEDS: MEROPENEM 500 MG in IV NS 0.9% 50 ML IV SCH (18:27)
--- NOTE | 2018-05-09 20:29 | NUR ---
RECEIVED PT INTUBATED ON VENT, 7.5 ETT SECURED AT 21CM AT THE LIP. NO RESP DISTRESS TOLERATING VENT SETTINGS. SXD FOR SML AMT OF THIN WHITE SECRETIONS. VENT ALARMS SET AND AUDIBLE. WILL CONTINUE TO MONITOR. Addendum: 05/09/18 at 2030 by EDWIN HOROWITZ RT Amended: Links added.
[2018-05-09] MEDS: ATORVASTATIN 10 MG TABLET PO SCH (21:30)
[2018-05-09] MEDS: DOXYCYCLINE HYCLATE (100 MG) 100 MG TABLET PO SCH (21:31)
[2018-05-10] VITALS (57 sets, daily range): BP systolic 79–160; BP diastolic 33–91
[2018-05-10] MEDS: PROPOFOL 100 ML IV PRN ×3 (00:08→23:50)
[2018-05-10] MEDS: ALBUTEROL FS 2.5 MG/3 ML VIAL.NEB NEB SCH ×6 (03:15→23:28)
[2018-05-10] MEDS: IPRATROPIUM NEB FS 0.5 MG/2.5 ML AMPUL.NEB NEB SCH ×6 (03:15→23:28)
[2018-05-10] MEDS: JEVITY 1.2 CAL 1,000 ML BOTTLE GT PRN (04:45)
[2018-05-10 04:58] LABS: HEMATOCRIT 21 % (33-45); LYMPHOCYTES # (AUTO) 0.4 /CMM (0.8-4.8); LYMPHOCYTES % (AUTO) 2.7 % (20.0-44.0); MEAN CORPUSCULAR HGB CONC 33 g/dl (31.0-36.0); MEAN CORPUSCULAR VOLUME 84 fL (82-100); MONOCYTES # (AUTO) 0.7 /CMM (0.1-1.30); MONOCYTES % (AUTO) 4.2 % (2.0-12.0); NEUTROPHILS # (AUTO) 14.7 /CMM (1.8-8.9); NEUTROPHILS % (AUTO) 93.1 % (43.0-81.0); PLATELET COUNT (AUTO) 332 /CMM (150-450); RED BLOOD CELL COUNT(AUTO) 2.51 MIL/uL (4.0-5.2); WHITE BLOOD COUNT (AUTO) 15.8 K/uL (4.3-11.0)
[2018-05-10 05:01] LABS: CALCIUM, SERUM 8.2 mg/dL (8.5-10.1); CARBON DIOXIDE 35 mmol/L (21-32); CHLORIDE 98 mmol/L (98-107); CREATININE 0.9 mg/dL (0.6-1.3); GLUCOSE 155 mg/dL (74-106); POTASSIUM 4.1 mmol/L (3.5-5.1); SODIUM SERUM 137 mmol/L (136-145); UREA NITROGEN, BLOOD 53 mg/dL (7-18)
[2018-05-10] MEDS: MEROPENEM 500 MG in IV NS 0.9% 50 ML IV SCH ×2 (05:21→17:26)
[2018-05-10 05:52] LABS: LYMPHOCYTES % (MANUAL) 3 % (16-48); METAMYELOCYTES % 2 % (0-0); MONOCYTES % (MANUAL) 4 % (0-11.0); NEUTROPHILS % (MANUAL) 90 (42-76); REACTIVE LYMPHOCYTES 1 % (0-0)
[2018-05-10] MEDS: DOXYCYCLINE HYCLATE (100 MG) 100 MG TABLET PO SCH ×2 (09:16→21:13)
[2018-05-10] MEDS: PANTOPRAZOLE 40 MG/PACK PACK GT SCH (09:16)
[2018-05-10] MEDS: LACTOBACILLUS RHAMNOSUS GG 1 EACH CAP.SPRINK PO SCH ×2 (09:17→17:25)
[2018-05-10] MEDS: methylPREDNISolone SOD SUCC 125 MG/2ML VIAL IV SCH ×3 (09:17→17:25)
[2018-05-10] MEDS: ACETAMINOPHEN 325 MG TABLET PO PRN (13:18)
[2018-05-10] MEDS: FLUCONAZOLE (100 MG) 100 MG TABLET PO SCH (17:25)
[2018-05-10] MEDS: NOREPINEPHRINE 8 MG in IV D5W 500 ML IV PRN (18:37)
--- NOTE | 2018-05-10 19:00 | NUR ---
RECEIVED PT IN NO ACUTE DISTRESS IN BED. PT DID IS SEDATED WITH PROPOFOL. PT IS ON O2 VIA ETT. ETT IS 7.5/20 AT THE LIP. PT IS TOLERATING VENT SETTING WELL WITH SETTING @ AC 14, TV 350, FIO2 40%, PEEP 0. PT IS ON TELE WITH SR WITH BBB ON THE MONITOR WITH OCCASIONAL PVC. PT HAS F/C THAT IS CLEAN DRY INTACT AND PATENT WITH YELLOW URINE DRAINING. PT HAS LEFT NGTUBE THAT IS CLEAN DRY INTACT AND PATENT WITH JEVITY @ 35ML/HR. PT TOLERATING WELL WITH 0 RESIDUALS. PT HAS JN PICC TLC THAT IS CLEAN DRY INTACT AND PATENT WITH PROPOFOL @ 35MCG, LEVO @ 5MCG, AND NS @ TKO. BED IN LOW LOCK POSITION WITH RIALS UP X 2. CALL LIGHT WITHIN REACH AND ALL SAFETY MEASURES ENSURED AND CARRIED OUT. WILL CONTINUE TO MONITOR PT.
--- NOTE | 2018-05-10 20:15 | NUR ---
RECEIVED PT INTUBATED ON VENT, 7.5 ETT SECURED AT 21CM AT THE LIP. NO RESP DISTRESS TOLERATING VENT SETTINGS. SXD FOR SML AMT OF THIN TINGED SECRETIONS. VENT ALARMS SET AND AUDIBLE. WILL CONTINUE TO MONITOR. Addendum: 05/10/18 at 2015 by EDWIN HOROWITZ RT Amended: Links added.
[2018-05-10] MEDS: ATORVASTATIN 10 MG TABLET PO SCH (21:13)
[2018-05-11] VITALS (64 sets, daily range): BP systolic 110–195; BP diastolic 59–91
[2018-05-11] MEDS: ALBUTEROL FS 2.5 MG/3 ML VIAL.NEB NEB SCH ×5 (03:34→20:25)
[2018-05-11] MEDS: IPRATROPIUM NEB FS 0.5 MG/2.5 ML AMPUL.NEB NEB SCH ×5 (03:34→20:25)
[2018-05-11] MEDS: MEROPENEM 500 MG in IV NS 0.9% 50 ML IV SCH ×2 (05:01→17:06)
[2018-05-11 05:09] LABS: BASOPHILS % (AUTO) 0.1 % (0.0-2.0); LYMPHOCYTES # (AUTO) 0.6 /CMM (0.8-4.8); LYMPHOCYTES % (AUTO) 4.2 % (20.0-44.0); MEAN CORPUSCULAR HGB CONC 33 g/dl (31.0-36.0); MEAN CORPUSCULAR VOLUME 84 fL (82-100); MONOCYTES # (AUTO) 0.6 /CMM (0.1-1.30); MONOCYTES % (AUTO) 4.5 % (2.0-12.0); NEUTROPHILS % (AUTO) 91.2 % (43.0-81.0); PLATELET COUNT (AUTO) 346 /CMM (150-450); RED BLOOD CELL COUNT(AUTO) 2.42 MIL/uL (4.0-5.2); WHITE BLOOD COUNT (AUTO) 13.1 K/uL (4.3-11.0)
[2018-05-11 05:17] LABS: CALCIUM, SERUM 8.2 mg/dL (8.5-10.1); CARBON DIOXIDE 37 mmol/L (21-32); CHLORIDE 99 mmol/L (98-107); CREATININE 0.6 mg/dL (0.6-1.3); GLUCOSE 183 mg/dL (74-106); POTASSIUM 4.4 mmol/L (3.5-5.1); SODIUM SERUM 138 mmol/L (136-145); UREA NITROGEN, BLOOD 43 mg/dL (7-18)
[2018-05-11 05:46] LABS: HEMATOCRIT 20 % (33-45); HEMOGLOBIN 6.8 g/dL (11.5-14.8)
--- NOTE | 2018-05-11 05:55 | NUR ---
RECEIVED CRITICAL LAB VALUE H/H 6.8. NOTIFIED DR. ESPARZA AND RECEIVED ORDERS FOR 1 UNIT PRBC. READBACK ORDERS PERFORMED AND CARRIED OUT.
[2018-05-11 06:18] LABS: BAND % (MANUAL) 3 % (0.0-5.0); LYMPHOCYTES % (MANUAL) 5 % (16-48); METAMYELOCYTES % 4 % (0-0); MONOCYTES % (MANUAL) 3 % (0-11.0); MYELOCYTES % 3 % (0-0); NEUTROPHILS % (MANUAL) 80 (42-76)
--- NOTE | 2018-05-11 06:34 | NUR ---
PT REMAINS IN NO ACUTE DISTRESS IN BED. PT DID NOT HAVE ANY SIGNIFICANT CHANGE IN CONDITION DURING SHIFT. PT TOLERATED VENT SETTING WELL. ALL NEEDS MET, ALL ORDERS CARRIED OUT. WILL ENDORSE CARE TO AM RN FOR CONTINUITY OF CARE.
[2018-05-11] MEDS: PROPOFOL 100 ML IV PRN ×2 (07:35→18:13)
--- NOTE | 2018-05-11 07:40 | NUR ---
ASSISTING IN CARE WITH JUNIOR HARDY
--- NOTE | 2018-05-11 08:00 | NUR ---
PER DR MCBRIDE PLEASE DO NOT TITRATE LEVOPHED. KEEP AT 5MCG/MIN
[2018-05-11] MEDS: methylPREDNISolone SOD SUCC 125 MG/2ML VIAL IV SCH ×3 (08:12→16:42)
[2018-05-11] MEDS: LACTOBACILLUS RHAMNOSUS GG 1 EACH CAP.SPRINK PO SCH ×2 (08:12→16:42)
[2018-05-11] MEDS: PANTOPRAZOLE 40 MG/PACK PACK GT SCH (08:12)
[2018-05-11] MEDS: DOXYCYCLINE HYCLATE (100 MG) 100 MG TABLET PO SCH ×2 (08:12→21:18)
[2018-05-11] MEDS: JEVITY 1.2 CAL 1,000 ML BOTTLE GT PRN (08:13)
[2018-05-11] MEDS: Z GUARD REMEDY 2 OZ OINT TP PRN (08:13)
--- NOTE | 2018-05-11 09:45 | NUR ---
CARE TAKEN OVER FROM JUNIOR HARDY.
--- NOTE | 2018-05-11 10:00 | NUR ---
PER DR MCBRIDE PATIENT TO HAVE BRONCHOSCOPY TODAY. MESSAGE LEFT FOR DAUGHTER FIONA
[2018-05-11 10:12] LABS: ABG OXYGEN SATURATION 97.3 % (92.0-98.5); ABG PCO2 48.2 mmHg (35.0-45.0); ABG PH 7.462 (7.350-7.450); ABG PO2 121.2 mmHg (75.0-100.0); AaDO2 108.6 mmHg; COHb 0.7 % (0.5-1.5); MetHb 1.3 % (0.0-1.5); O2Hb 95.4 % (94.0-97.0); SITE, ABG Left Radial; VENT MODE, BG AC 14 400 40% +0
--- NOTE | 2018-05-11 10:30 | NUR ---
TUBE FEEDING PAUSED FOR PLANNED BRONCH WITH DR MCBRIDE THIS AFTERNOON
[2018-05-11] MEDS ORDERED: LIDOCAINE 2% JEL UROJET 10 ML MM ONE (14:30)
--- NOTE | 2018-05-11 14:50 | NUR ---
NOTIFIED DR MCBRIDE OF PATIENT CURRENT ELEVATED BP. PER MD ALEMAN TO TITRATE DOWN ON LEVOPHED HOWEVER IF BLEEDING RESTARTS THEN RESUME LEVOPHED.
--- NOTE | 2018-05-11 15:04 | NUR ---
PATIENT TOLERATED BRONCHOSCOPY. SPUTUM SAMPLE SENT PER ORDER.
--- NOTE | 2018-05-11 16:30 | NUR ---
FAMILY AT BEDSIDE. PATIENT SEDATED. RESTRAINTS REMOVED.PATIENT RESTING COMFORTABLY.
[2018-05-11] MEDS: FLUCONAZOLE (100 MG) 100 MG TABLET PO SCH (17:05)
--- NOTE | 2018-05-11 18:37 | NUR ---
RT END OF THE SHIFT REPORT, PT. 77 Y OLD FEMALE (REC.0700AM SEC.DAY OF CARE) ORALLY INTUBATED ETT # 7.5 @20 CM ON VENT WITH NOTED SETTINGS, ASSISTED DR. MCBRIDE FOR BRONCHOSCOPY, SPUTUM SAMPLE SENT TO LAB. NO CHANGES T/O DAY AND PT. REMAIN STABLE WITH NO DISTRESS, B/S BILATERALLY RALES, SUX'D FOR MINIMAL/AMT AMT REDDISH SECRETIONS, LESS BLOODY THAN YESTERDAY EMT BASIC DONE, EQUAL CHEST RISE NOTED, HME CHANGED, VENT PLUGGED INTO RED OUT LET. AMBU BAG REMAIN AT THE BEDSIDE. AND REPORT WILL PASS TO PM SHIFT. Addendum: 05/11/18 at 1839 by LOVE LUI RT Amended: Links added.
--- NOTE | 2018-05-11 18:38 | NUR ---
all due meds given and all needs met. patient sedated awake to light pain. bp stable off levo with no s/s bleeding at this time. allen c/d/i/p with 450ml output. tolerating vent no sob,difficulty breathing and flacc 0. safety, skin, aspiration precautions all in place and monitored.
--- NOTE | 2018-05-11 20:00 | NUR ---
STORE PRODUCT DEMONSTRATOR - NOTES - RECEIVED PT IN NO ACUTE DISTRESS IN BED. PT IS SEDATED WITH PROPOFOL. PT IS ON ETT 7.5/20 AT THE LIP. PT IS TOLERATING VENT SETTING WELL WITH SETTING @ AC 14, TV 400, FIO2 40%, PEEP 0. PT IS ON TELE WITH ST/SR WITH BBB ON THE MONITOR WITH OCCASIONAL PVC. PT HAS F/C THAT IS CLEAN DRY INTACT AND PATENT WITH YELLOW URINE DRAINING. PT HAS LEFT NGT THAT IS CLEAN DRY INTACT AND PATENT WITH JEVITY @ 35ML/HR. PT TOLERATING WELL WITH 10 RESIDUALS. PT HAS JN PICC TLC THAT IS CLEAN DRY INTACT AND PATENT WITH PROPOFOL @ 35MCG. BED IN LOW LOCK POSITION WITH RAILS UP X 2. CALL LIGHT WITHIN REACH AND ALL SAFETY MEASURES ENSURED AND CARRIED OUT. WILL CONTINUE TO MONITOR PT.
[2018-05-11] MEDS: ATORVASTATIN 10 MG TABLET PO SCH (21:18)
[2018-05-12] VITALS (46 sets, daily range): BP systolic 100–146; BP diastolic 51–78
[2018-05-12] MEDS: ALBUTEROL FS 2.5 MG/3 ML VIAL.NEB NEB SCH ×7 (00:29→23:50)
[2018-05-12] MEDS: IPRATROPIUM NEB FS 0.5 MG/2.5 ML AMPUL.NEB NEB SCH ×7 (00:29→23:50)
[2018-05-12] MEDS: PROPOFOL 100 ML IV PRN (02:46)
[2018-05-12 04:55] LABS: EOSINOPHILS % (AUTO) 0.1 % (0.0-6.0); HEMATOCRIT 29 % (33-45); HEMOGLOBIN 9.7 g/dL (11.5-14.8); LYMPHOCYTES # (AUTO) 0.4 /CMM (0.8-4.8); LYMPHOCYTES % (AUTO) 3.4 % (20.0-44.0); MEAN CORPUSCULAR HGB CONC 33 g/dl (31.0-36.0); MEAN CORPUSCULAR VOLUME 88 fL (82-100); MONOCYTES # (AUTO) 0.7 /CMM (0.1-1.30); NEUTROPHILS # (AUTO) 11.2 /CMM (1.8-8.9); NEUTROPHILS % (AUTO) 90.5 % (43.0-81.0); PLATELET COUNT (AUTO) 282 /CMM (150-450); RED BLOOD CELL COUNT(AUTO) 3.33 MIL/uL (4.0-5.2); WHITE BLOOD COUNT (AUTO) 12.3 K/uL (4.3-11.0)
[2018-05-12 05:02] LABS: CARBON DIOXIDE 38 mmol/L (21-32); CHLORIDE 102 mmol/L (98-107); CREATININE 0.7 mg/dL (0.6-1.3); GLUCOSE 173 mg/dL (74-106); POTASSIUM 4.1 mmol/L (3.5-5.1); SODIUM SERUM 138 mmol/L (136-145); UREA NITROGEN, BLOOD 42 mg/dL (7-18)
[2018-05-12] MEDS: MEROPENEM 500 MG in IV NS 0.9% 50 ML IV SCH ×2 (05:18→17:22)
--- NOTE | 2018-05-12 07:15 | NUR ---
RN INITIAL NOTES: Rec'd pt asleep on bed, not in any distress, sedated. On MV via ETT, sating at 100%. On telemonitor, SR. Has NGT, on cont GTF Jevity 1.2 x 45 cc/hr infusing well, no residual noted upon checking. Has JN PICC line w/ Diprivan at 35 mcg infusing well. Has FC draining to BSB. Has B soft wrist restraints for safety. Safety precaution in place w/ bed in lowest & locked pos. Call light w/in reach. Will cont to monitor & attend pt needs.
--- NOTE | 2018-05-12 08:00 | NUR ---
Sedation Vacation started. Pt not in any distress. Pt for weaning trials.
--- NOTE | 2018-05-12 08:30 | NUR ---
Started on SIMV mode c/o Feliz RT.
[2018-05-12] MEDS: DOXYCYCLINE HYCLATE (100 MG) 100 MG TABLET PO SCH ×2 (08:52→21:56)
[2018-05-12] MEDS: methylPREDNISolone SOD SUCC 125 MG/2ML VIAL IV SCH ×3 (08:52→17:22)
[2018-05-12] MEDS: PANTOPRAZOLE 40 MG/PACK PACK GT SCH (08:52)
[2018-05-12] MEDS: LACTOBACILLUS RHAMNOSUS GG 1 EACH CAP.SPRINK PO SCH ×2 (08:52→17:22)
[2018-05-12] MEDS: Z GUARD REMEDY 2 OZ OINT TP PRN (08:53)
--- NOTE | 2018-05-12 09:27 | NUR ---
Pt seen & examined by Dr. Donahue & updated about pt status.
--- NOTE | 2018-05-12 09:34 | NUR ---
Pt seen & examined by Dr. Stephen.
[2018-05-12 09:36] LABS: ABG BASE EXCESS 9.2 mmol/L; ABG PCO2 56.1 mmHg (35.0-45.0); ABG PH 7.416 (7.350-7.450); ABG PO2 158.3 mmHg (75.0-100.0); AaDO2 62.4 mmHg; COHb 0.3 % (0.5-1.5); MetHb 1.2 % (0.0-1.5); O2Hb 96.5 % (94.0-97.0); PEEP,BG 5 cm H2O; SITE, ABG Left Brachial; VENT MODE, BG simv. ps12
--- NOTE | 2018-05-12 09:42 | NUR ---
ABG relayed to Dr. Donahue. Addendum: 05/12/18 at 1040 by PATRICK BEDOYA RN ordered MV settings to CPAP 01/21 & ABG after 2 hours & call. RT made aware.
[2018-05-12] MEDS: FUROSEMIDE 40 MG TABLET PO SCH (11:45)
[2018-05-12 12:23] LABS: ABG BASE EXCESS 8.4 mmol/L; ABG OXYGEN SATURATION 97.3 % (92.0-98.5); ABG PCO2 52.5 mmHg (35.0-45.0); ABG PH 7.429 (7.350-7.450); ABG PO2 116.4 mmHg (75.0-100.0); AaDO2 108.4 mmHg; COHb 0.1 % (0.5-1.5); MetHb 0.7 % (0.0-1.5); O2Hb 96.5 % (94.0-97.0); PEEP,BG 5 cm H2O; SITE, ABG Right Radial
--- NOTE | 2018-05-12 12:29 | NUR ---
CPAP 01/21. ABG relayed to Dr. Donahue w/ orders to extubate pt to keep sats >92%. Do swallow evaluation. RT Taye made aware.
[2018-05-12] MEDS ORDERED: DC PROPOFOL WHEN EXTUBATED XX PRN (12:30)
--- NOTE | 2018-05-12 13:25 | NUR ---
Extubation done c/o Feliz RT. Pt tolerated well the procedure.
[2018-05-12] MEDS: FLUCONAZOLE (100 MG) 100 MG TABLET PO SCH (17:43)
--- NOTE | 2018-05-12 18:44 | NUR ---
RT END OF THE SHIFT REPORT, PT. 77 Y OLD FEMALE REC. IN AM PT. ORALLY INTUBATED ETT # 7.5 @23 CM LIP LINE ON VENT WITH NOTED SETTINGS, SUX'D FOR MINIMAL/AMT AMT THICK YELLOW SECRETIONS, HME CHANGED, VENT PLUGGED INTO RED OUT LET. AMBU BAG REMAIN AT THE BEDSIDE. TX'S GIVEN INLINE, NO ADVERSE REACTION NOTED. PLANE CAPTAIN DONE, EQUAL CHEST RISE NOTED, WEANING STARTED DURING THE DAY AND PT. @[address] MCBRIDE ORDER PT. REMAIN STABLE, AWAKE AND RESPONSIVE. PLACED ON 4L/MIN O2 NO DISTRESS OR STRIDOR NOTED. RN AT THE BEDSIDE. B/S BILATERALLY RALES, VITALS STABLE. REPORT WILL PASS TO PM SHIFT. Addendum: 05/12/18 at 1848 by LOVE LUI RT Amended: Links added.
--- NOTE | 2018-05-12 18:53 | NUR ---
RN CLOSING NOTES: Pt resting comfortably on bed, A/O x1 w/ confusion. Tolerating NC at 4lpm, no SOB. On telemonitor, remains SR. NGT kept patent & intact, tolerated cont GTF Jevity 1.2 x 45 cc/hr infusing well, no residual w/in shift. JN PICC line TLC kept patent & intact. FC kept draining to BSB. Safety precaution kept in place w/ bed in lowest & locked pos. Call light w/in reach. Family at bedside. Will endorse to PM RN for CRYSTAL.
--- NOTE | 2018-05-12 20:00 | NUR ---
SENIOR DATA WAREHOUSE ARCHITECT - NOTES - RECEIVED PT IN NO ACUTE DISTRESS IN BED. PT IS ON 4L NC TOLERATING WELL. PT IS ON TELE WITH ST/SR 90-100 WITH BBB ON THE MONITOR. PT HAS F/C THAT IS CLEAN DRY INTACT AND PATENT WITH YELLOW URINE DRAINING. PT HAS LEFT NGT THAT IS CLEAN DRY INTACT AND PATENT WITH JEVITY @ 45ML/HR. PT TOLERATING WELL WITH 0 RESIDUALS. PT HAS JN PICC TLC THAT IS CLEAN DRY INTACT AND PATENT. BED IN LOW LOCK POSITION WITH RAILS UP X 2. CALL LIGHT WITHIN REACH AND ALL SAFETY MEASURES ENSURED AND CARRIED OUT. WILL CONTINUE TO MONITOR PT.
[2018-05-12] MEDS: ATORVASTATIN 10 MG TABLET PO SCH (21:56)
[2018-05-13] VITALS (17 sets, daily range): BP systolic 119–153; BP diastolic 55–84
[2018-05-13] MEDS: ALBUTEROL FS 2.5 MG/3 ML VIAL.NEB NEB SCH ×6 (03:39→23:28)
[2018-05-13] MEDS: IPRATROPIUM NEB FS 0.5 MG/2.5 ML AMPUL.NEB NEB SCH ×6 (03:39→23:27)
[2018-05-13] MEDS: JEVITY 1.2 CAL 1,000 ML BOTTLE GT PRN (04:34)
[2018-05-13] MEDS: MEROPENEM 500 MG in IV NS 0.9% 50 ML IV SCH ×2 (05:05→17:07)
--- NOTE | 2018-05-13 07:10 | NUR ---
RN INITIAL NOTES: Rec'd pt awake on bed, not in any distress, A/O x 1, Kosovan speaking. On NC at 4lpm, sating at 100%. On telemonitor, SR. Has NGT, on cont GTF Jevity 1.2 x 45 cc/hr infusing well, no residual noted upon checking. Has JN Midline SL, patent & intact w/ no s/sx of infection/infiltration noted. Has FC draining to BSB. Safety precaution in place w/ bed in lowest & locked pos. Call light w/in reach. Will cont to monitor & attend pt needs. Awaiting for swallow eval.
[2018-05-13 08:50] LABS: ABG BASE EXCESS 8.4 mmol/L; ABG OXYGEN SATURATION 96.1 % (92.0-98.5); ABG PCO2 63.5 mmHg (35.0-45.0); ABG PH 7.364 (7.350-7.450); ABG PO2 101.4 mmHg (75.0-100.0); AaDO2 23.3 mmHg; COHb 0.6 % (0.5-1.5); MetHb 0.8 % (0.0-1.5); O2Hb 94.8 % (94.0-97.0); SITE, ABG Right Radial; VENT MODE, BG NASAL CANNULA
[2018-05-13] MEDS: FUROSEMIDE 40 MG TABLET PO SCH (09:20)
[2018-05-13] MEDS: DOXYCYCLINE HYCLATE (100 MG) 100 MG TABLET PO SCH ×2 (09:20→21:11)
[2018-05-13] MEDS: PANTOPRAZOLE 40 MG/PACK PACK GT SCH (09:20)
[2018-05-13] MEDS: methylPREDNISolone SOD SUCC 125 MG/2ML VIAL IV SCH ×3 (09:20→16:33)
--- NOTE | 2018-05-13 09:20 | NUR ---
Pt seen & examined by Dr. Donahue. ABG reviewed by w/ orders made & carried out.
[2018-05-13] MEDS: Z GUARD REMEDY 2 OZ OINT TP PRN (09:21)
[2018-05-13] MEDS: LACTOBACILLUS RHAMNOSUS GG 1 EACH CAP.SPRINK PO SCH ×2 (09:50→16:33)
--- NOTE | 2018-05-13 14:07 | NUR ---
RN NOTE: RECEIVED PATIENT FROM ICU TRANSPORTED BY BED WITH JUNIOR HARDY AND ANOTHER STAFF. PATIENT WAS BROUGHT TO ROOM 102, AWAKE, CAN SPONTANEOUSLY OPEN HER EYES AND WAS NOT SPEAKING AT THE MOMENT. HOB ELEVATED. BED ALARMED AND LOCKED AT ALL TIMES. REPORT WAS RECEIVED FROM JUNIOR HARDY. PATIENT WAS CONNECTED TO THE [facility] AND GARDEN TECHNICIAN SR WITH BBB HR= 95. CALL LIGHT WITHIN REACH.
--- NOTE | 2018-05-13 14:10 | NUR ---
ICU TRANSFER NOTES: Pt transferred via bed to [facility] as ordered, ACLS protocol. Pt remains A/O x 1, not in any distress. Tolerating NC at 2lpm, no SOB. SR/ST on the monitor. IV line access kept patent & intact w/ no s/sx of infection/infiltration, dressing C/D/I. FC kept patent & intact draining to BSB. Report was given to JUNIOR Kelly c/o Yuliana PACHECO. All belongings including meds sent w/ pt.
[2018-05-13] MEDS: FLUCONAZOLE (100 MG) 100 MG TABLET PO SCH (17:06)
--- NOTE | 2018-05-13 19:01 | NUR ---
RN NOTE: PATIENT ON STABLE CONDITION AND DAUGHTER WAS PRESENT AT THE BEDSIDE. BEDSIDE REPORT WAS GIVEN TO THE PM SHIFT NURSE FOR CONTINUITY OF CARE.
--- NOTE | 2018-05-13 19:10 | NUR ---
TD/RN INITIAL NOTES RECEIVED PT IN BED, ALERT TO NAME, VERBALLY RESPONSIVE IN MICRONESIAN SPEAKING. FAMILY AT BEDSIDE. SR ON TELE. NO C/O PAIN AT THIS TIME. ON 2L O2 VIA NC, NO SOB NOTED. FC INTACT AND IN PLACED, DRAINING CLEAR YELLOW COLORED URINE. JN MIDLINE PATENT AND C/D/I. HOB ELEVATED. SAFETY MEASURES AND ASPIRATION PRECAUTION IN PLACED. CALL LIGHT WITHIN EASY REACH. WILL CONT TO MONITOR
[2018-05-13] MEDS: ATORVASTATIN 10 MG TABLET PO SCH (21:12)
[2018-05-14] VITALS (9 sets, daily range): BP systolic 122–147; BP diastolic 63–73
[2018-05-14] MEDS: ALBUTEROL FS 2.5 MG/3 ML VIAL.NEB NEB SCH ×6 (03:41→23:03)
[2018-05-14] MEDS: IPRATROPIUM NEB FS 0.5 MG/2.5 ML AMPUL.NEB NEB SCH ×6 (03:41→23:03)
[2018-05-14] MEDS: MEROPENEM 500 MG in IV NS 0.9% 50 ML IV SCH ×2 (05:20→17:21)
[2018-05-14 06:46] LABS: BASOPHILS % (AUTO) 0.1 % (0.0-2.0); HEMATOCRIT 27 % (33-45); HEMOGLOBIN 8.9 g/dL (11.5-14.8); LYMPHOCYTES # (AUTO) 0.2 /CMM (0.8-4.8); LYMPHOCYTES % (AUTO) 1.1 % (20.0-44.0); MEAN CORPUSCULAR HGB CONC 34 g/dl (31.0-36.0); MEAN CORPUSCULAR VOLUME 88 fL (82-100); MONOCYTES # (AUTO) 0.6 /CMM (0.1-1.30); MONOCYTES % (AUTO) 3.5 % (2.0-12.0); NEUTROPHILS % (AUTO) 95.3 % (43.0-81.0); PLATELET COUNT (AUTO) 256 /CMM (150-450); RED BLOOD CELL COUNT(AUTO) 3.03 MIL/uL (4.0-5.2); WHITE BLOOD COUNT (AUTO) 17.8 K/uL (4.3-11.0)
--- NOTE | 2018-05-14 06:51 | NUR ---
RN NOTES PT IN STABLE CONDITION. NO ACUTE CHANGES THROUGHOUT SHIFT. ALL NEEDS ANTICIPATED. SAFETY MEASURES AND ASPIRATION PRECAUTION OBSERVED AT ALL TIMES. ENDORSED TO AM SHIFT RN FOR CRYSTAL
[2018-05-14 06:58] LABS: CALCIUM, SERUM 7.9 mg/dL (8.5-10.1); CARBON DIOXIDE 39 mmol/L (21-32); CHLORIDE 101 mmol/L (98-107); CREATININE 0.4 mg/dL (0.6-1.3); GLUCOSE 106 mg/dL (74-106); MAGNESIUM 2.1 mg/dL (1.8-2.4); PHOSPHORUS 2.7 mg/dL (2.5-4.9); POTASSIUM 3.5 mmol/L (3.5-5.1); SODIUM SERUM 144 mmol/L (136-145); UREA NITROGEN, BLOOD 41 mg/dL (7-18)
--- NOTE | 2018-05-14 07:43 | NUR ---
[facility] RN NOTES RECEIVED PATIENT IN BED, ALERT X 1, ON BIPAP SETTING AT THIS TIME. RT HAS BEEN CALLED TO CHANGE TO NC. PATIENT ON TELE MONITOR SR HR 96 WITH LEAL CATH TO GRAVITY WITH YELLOW COLOR URINE. SEEN BY DR. HERRERA, SPECIAL EFFECTS ARTIST. RIGHT UPPER ARM MIDLINE IN PLACE NO SIGNS OR SYMPTOMS OF INFECTION. BED LOCKED AND LOWEST POSITION ON LOW AIR MATTRESS FOR SKIN MANAGEMENT. CALL LIGHT WITHIN REACH. PLAN OF CARE DISCUSSED WITH PATIENT. WILL CONTINUE TO MONITOR CLOSELY
[2018-05-14] MEDS: FUROSEMIDE 40 MG TABLET PO SCH (08:20)
[2018-05-14] MEDS: LACTOBACILLUS RHAMNOSUS GG 1 EACH CAP.SPRINK PO SCH ×2 (08:20→16:04)
[2018-05-14] MEDS: DOXYCYCLINE HYCLATE (100 MG) 100 MG TABLET PO SCH ×2 (08:20→21:59)
[2018-05-14] MEDS: PANTOPRAZOLE 40 MG/PACK PACK GT SCH (08:21)
[2018-05-14] MEDS: methylPREDNISolone SOD SUCC 125 MG/2ML VIAL IV SCH ×3 (08:21→16:05)
--- NOTE | 2018-05-14 08:37 | NUR ---
[facility] RN NOTE RT AT BEDSIDE, REMOVED BIPAP, PATIENT ON NC 2LPM O2 SAT 96%, FED BY STAFF, ATE 25% OF BREAKFAST. ON BREATHING TX BY RT WILL MONITOR
[2018-05-14 09:57] LABS: ABG BASE EXCESS 11.8 mmol/L; ABG PCO2 51.2 mmHg (35.0-45.0); ABG PH 7.476 (7.350-7.450); ABG PO2 82.3 mmHg (75.0-100.0); AaDO2 56.9 mmHg; COHb 0.5 % (0.5-1.5); MetHb 0.6 % (0.0-1.5); SITE, ABG Right Radial; VENT MODE, BG Nasal Cannula
--- NOTE | 2018-05-14 10:24 | NUR ---
[facility] PACHECO NOTES DOCTOR DAREN TAVERAS AT BEDSIDE AWARE OF ABG RESULT AND WBC 17.8 STATED PATIENT IS IMPROVING, WILL CONTINUE TO MONITOR Addendum: 05/14/18 at 1117 by ROBBIN BENTLEY RN DIETITIAN AT BEDSIDE NOTIFIED THAT PATIENT ATE 25% OF BREAKFAST , OK TO STOP G TUBE FEEDING ORDER
[2018-05-14] MEDS: ENSURE ENLIVE 237 ML LIQUID (VANILLA) PO SCH ×2 (12:00→16:38)
--- NOTE | 2018-05-14 14:30 | NUR ---
[facility] RN NOTE ST AT BEDSIDE OK TO CONT PUREE DIET, WILL F\U
--- NOTE | 2018-05-14 17:15 | NUR ---
[facility] RN NOTES NEW LEAL CATHETER INSERTED ORDERED YELLOW COLOR URINE NOTED , KEEP CLEAN AND DRY , FAMILY IS AT BED SIDE , NOT IN ANY DISTRESS, CONTINUE TO MONITOR
[2018-05-14] MEDS: ACETAMINOPHEN 325 MG TABLET PO PRN ×2 (18:02→21:59)
--- NOTE | 2018-05-14 18:15 | NUR ---
[facility] RN NOTE C\O BACK PAIN TYLENOL PO GIVEN, FAMILY AT BEDSIDE ,FED DINNER , ATE 25% OF FOOD, KEEP CLEAN DRY. ALL NEEDS ATTENDED
--- NOTE | 2018-05-14 20:00 | NUR ---
[facility] RN INITIAL NOTES RECEIVED PATIENT IN BED, ALERT X 1, ON NC @ 2L AT THIS TIME. PATIENT ON TELE MONITOR SR HR 100'S WITH LEAL CATH TO GRAVITY WITH YELLOW COLOR URINE. RIGHT UPPER ARM MIDLINE IN PLACE NO SIGNS OR SYMPTOMS OF INFECTION. BED LOCKED AND LOWEST POSITION ON LOW AIR MATTRESS FOR SKIN MANAGEMENT. CALL LIGHT WITHIN REACH. PLAN OF CARE DISCUSSED WITH PATIENT. WILL CONTINUE TO MONITOR CLOSELY
[2018-05-14] MEDS: VORICONAZOLE 200 MG TABLET PO SCH (21:58)
[2018-05-14] MEDS: ATORVASTATIN 10 MG TABLET PO SCH (21:59)
[2018-05-15] VITALS (7 sets, daily range): BP systolic 124–139; BP diastolic 63–78
[2018-05-15] MEDS: IPRATROPIUM NEB FS 0.5 MG/2.5 ML AMPUL.NEB NEB SCH ×7 (03:14→23:14)
[2018-05-15] MEDS: ALBUTEROL FS 2.5 MG/3 ML VIAL.NEB NEB SCH ×6 (03:14→23:14)
[2018-05-15] MEDS: MEROPENEM 500 MG in IV NS 0.9% 50 ML IV SCH (05:24)
--- NOTE | 2018-05-15 06:46 | NUR ---
[facility] RN CLOSING NOTES ENDORSED PATIENT IN BED, ALERT X 1, ON NC @ 2L AT THIS TIME. PATIENT ON TELE MONITOR SR HR 100'S WITH LEAL CATH TO GRAVITY WITH YELLOW COLOR URINE. RIGHT UPPER ARM MIDLINE IN PLACE NO SIGNS OR SYMPTOMS OF INFECTION. BED LOCKED AND LOWEST POSITION ON LOW AIR MATTRESS FOR SKIN MANAGEMENT. CALL LIGHT WITHIN REACH. PLAN OF CARE DISCUSSED WITH PATIENT. WILL CONTINUE TO MONITOR CLOSELY
--- NOTE | 2018-05-15 07:30 | NUR ---
RN NOTES RECEIVED PATIENT IN BED, ALERT AND ORIENTED X 1, ABLE TO COMMUNICATE BUT ABLE TO EXPRESS SELF BETTER IN [place]. ON NC @ 2L AT THIS TIME. NO SOB NOTED SATING AT 99%. SR WITH HR ON THE 90'S ON THE MONITOR. JN MIDLINE IN PLACE, DRESSING CDI, NO SIGNS OR SYMPTOMS OF INFECTION. LEAL CATH TO GRAVITY WITH YELLOW COLOR URINE. SAFETY MEASURES OBSERVED AND MAINTAINED. BED LOCKED AND LOW POSITION. CALL LIGHT WITHIN REACH. PLAN OF CARE DISCUSSED WITH PATIENT. WILL CONTINUE TO MONITOR CLOSELY
[2018-05-15] MEDS: methylPREDNISolone SOD SUCC 125 MG/2ML VIAL IV SCH ×3 (08:38→17:12)
[2018-05-15] MEDS: DOXYCYCLINE HYCLATE (100 MG) 100 MG TABLET PO SCH (08:38)
[2018-05-15] MEDS: PANTOPRAZOLE 40 MG/PACK PACK GT SCH (08:38)
[2018-05-15] MEDS: FUROSEMIDE 40 MG TABLET PO SCH (08:38)
[2018-05-15] MEDS: LACTOBACILLUS RHAMNOSUS GG 1 EACH CAP.SPRINK PO SCH ×2 (08:38→17:12)
[2018-05-15] MEDS: VORICONAZOLE 200 MG TABLET PO SCH ×2 (08:39→21:16)
[2018-05-15] MEDS: ENSURE ENLIVE 237 ML LIQUID (VANILLA) PO SCH ×2 (08:51→17:13)
--- NOTE | 2018-05-15 10:00 | NUR ---
RN NOTES PATIENT NOTED WITH EPISODE OF CONFUSION, TALK ABOUT SOMETHING HAPPENING THAT ARE NOT PRESENT AND NOT OCCURRING AT THE TIME BEING.
[2018-05-15] MEDS ORDERED: LEVOFLOXACIN 500 MG /D5W 100ML 500 MG in PREMIX 1 EA IV SCH (16:30)
[2018-05-15] MEDS: ACETAMINOPHEN 325 MG TABLET PO PRN (18:06)
--- NOTE | 2018-05-15 19:30 | NUR ---
RN NOTES ENDORSED PATIENT FOR CONTINUITY OF CARE. NO ACUTE CHANGES WITHIN THE SHIFT. ALL NURSING NEEDS ATTENDED AND MET. SAFETY MEASURES IN PLACE AT ALL TIMES. HOB KEPT ELEVATED. DAUGHTER AT BEDSIDE. CALL LIGHT WITHIN REACH
[2018-05-15] MEDS: ATORVASTATIN 10 MG TABLET PO SCH (21:17)
--- NOTE | 2018-05-15 23:15 | NUR ---
RT NOTE ATTEMPTED TO PLACE PATIENT ON NOC BIPAP. PATIENT REFUSED BIPAP AT THIS TIME. NO RESPIRATORY DISTRESS NOTED. RN CELWYN BEDSIDE AND AWARE.
[2018-05-16] VITALS: BP 131/69
[2018-05-16] MEDS: ALBUTEROL FS 2.5 MG/3 ML VIAL.NEB NEB SCH ×6 (03:03→22:44)
[2018-05-16] MEDS: IPRATROPIUM NEB FS 0.5 MG/2.5 ML AMPUL.NEB NEB SCH ×6 (03:03→22:44)
[2018-05-16 04:00] VITALS: BP 134/72
[2018-05-16 06:56] LABS: BASOPHILS % (AUTO) 0.3 % (0.0-2.0); HEMATOCRIT 28 % (33-45); HEMOGLOBIN 9.5 g/dL (11.5-14.8); LYMPHOCYTES # (AUTO) 0.1 /CMM (0.8-4.8); LYMPHOCYTES % (AUTO) 0.4 % (20.0-44.0); MEAN CORPUSCULAR HGB CONC 34 g/dl (31.0-36.0); MEAN CORPUSCULAR VOLUME 87 fL (82-100); MONOCYTES # (AUTO) 0.2 /CMM (0.1-1.30); MONOCYTES % (AUTO) 1.4 % (2.0-12.0); NEUTROPHILS # (AUTO) 15.5 /CMM (1.8-8.9); NEUTROPHILS % (AUTO) 97.9 % (43.0-81.0); PLATELET COUNT (AUTO) 243 /CMM (150-450); RED BLOOD CELL COUNT(AUTO) 3.23 MIL/uL (4.0-5.2); WHITE BLOOD COUNT (AUTO) 15.8 K/uL (4.3-11.0)
--- NOTE | 2018-05-16 07:30 | NUR ---
JACKSPOOLER NOTES PT IN BED, AWAKE, ALERT AND ORIENTED, NO COMPLAINT AT THIS TIME, RESPIRATIONS NORMAL, NOT IN DISTRESS, ASSISTED WITH NEEDS, CALL LIGHT WITHIN REACH, ASSISTED WITH BREAKFAST.
[2018-05-16 08:00] VITALS: BP 134/73
[2018-05-16] MEDS: LACTOBACILLUS RHAMNOSUS GG 1 EACH CAP.SPRINK PO SCH ×2 (08:32→17:06)
[2018-05-16] MEDS: ENSURE ENLIVE 237 ML LIQUID (VANILLA) PO SCH ×2 (08:32→17:07)
[2018-05-16] MEDS: PANTOPRAZOLE 40 MG/PACK PACK GT SCH (08:32)
[2018-05-16] MEDS: methylPREDNISolone SOD SUCC 125 MG/2ML VIAL IV SCH ×3 (08:32→17:06)
[2018-05-16] MEDS: FUROSEMIDE 40 MG TABLET PO SCH (08:32)
[2018-05-16] MEDS: VORICONAZOLE 200 MG TABLET PO SCH ×2 (08:32→21:38)
[2018-05-16 09:51] LABS: CALCIUM, SERUM 8.8 mg/dL (8.5-10.1); CHLORIDE 95 mmol/L (98-107); CREATININE 0.6 mg/dL (0.6-1.3); GLUCOSE 138 mg/dL (74-106); POTASSIUM 3.9 mmol/L (3.5-5.1); SODIUM SERUM 139 mmol/L (136-145); UREA NITROGEN, BLOOD 46 mg/dL (7-18)
[2018-05-16 09:59] LABS: CARBON DIOXIDE 41 mmol/L (21-32)
--- NOTE | 2018-05-16 10:21 | NUR ---
CRUSHER WET GROUND MICA NOTES PT IN BED, RESTING, NO RESPIRATORY DISTRESS NOTED, BLOOD CO2 TODAY IS 41, DR MCBRIDE INFORMED, NO NEW ORDER GIVEN BY , DR. SABA ALSO INFORMED.
--- NOTE | 2018-05-16 10:24 | NUR ---
RN MS NOTES DR. MCBRIDE INFORMED OF PT'S REFUSAL TO USE BIPAP AT NIGHT, NO NEW ORDER GIVEN.
[2018-05-16 12:00] VITALS: BP 123/61
--- NOTE | 2018-05-16 13:00 | NUR ---
TOLL COLLECTOR SUPERVISOR NOTES PT IN BED, RESTING, EASY TO AROUSE, ALERT AND ORIENTED, NO COMPLAINT OF PAIN, NOT IN DISTRESS, ON O2 AT 1LPM VIA NASAL CANULA, NO COUGHING NOTED, ASSISTED WITH MEALS, TOLERATING CURRENT DIET WELL, KEPT CLEAN AND DRY, TURNED AND REPOSITIONED Q2 HOURS.
[2018-05-16] MEDS: LEVOFLOXACIN 250 MG /D5W 50 ML 250 MG in PREMIX 1 EA IV SCH (15:18)
[2018-05-16 16:00] VITALS: BP 135/68
--- NOTE | 2018-05-16 18:18 | NUR ---
DOPE POURER NOTES PT IN BED, AWAKE, ALERT AND ORIENTED, DENIES PAIN, RESPIRATIONS NORMAL AND NON LABORED, ON O2 AT 1LPM VIA NASAL CANULA, O2 SAT OF 96%, DAUGHTER FIONA ASSISTING PT WITH DINNER, TOLERATING WELL, F/C IN PLACE, DRAINING WELL, PM CARE PROVIDED, KEPT CLEAN AND DRY, CALL LIGHT WITHIN REACH, ALL NEEDS ATTENDED.
[2018-05-16 20:00] VITALS: BP 142/72
--- NOTE | 2018-05-16 20:00 | NUR ---
RN NOTES PATIENT IS ALERT AND ORIENTED X2, ABLE TO VERBALIZE NEEDS IN EQUATORIAL GUINEAN, NO SOB, ON 1LPM VIA NC, SPO2 98%, LUNG SOUNDS ARE DIMINISHED AND CLEAR, ABDOMEN SOFT AND NON-TENDER, PASSING GAS, LEAL CATHETER DRAINING WELL, WITH CLEAR AND YELLOW URINE, ASPIRATION PRECAUTION, NEEDS ATTENDED, CALL LIGHT WITHIN REACH, DISCUSSED PLAN OF CARE WITH DAUGHTER AT THE BEDSIDE.
[2018-05-16] MEDS: ATORVASTATIN 10 MG TABLET PO SCH (21:38)
[2018-05-17] VITALS (7 sets, daily range): BP systolic 119–138; BP diastolic 62–89
[2018-05-17] MEDS: ALBUTEROL FS 2.5 MG/3 ML VIAL.NEB NEB SCH ×6 (02:48→23:00)
[2018-05-17] MEDS: IPRATROPIUM NEB FS 0.5 MG/2.5 ML AMPUL.NEB NEB SCH ×6 (02:48→23:00)
[2018-05-17] MEDS: ACETAMINOPHEN 325 MG TABLET PO PRN ×2 (04:21→17:10)
--- NOTE | 2018-05-17 06:15 | NUR ---
RN NOTES PM SHIFT PATIENT IS ALERT AND ORIENTED X2-3, ON 2LPM VIA NC, CONTINUOUS SPO2 MONITORING 98-100%, DESATURATING WHEN NC IS OFF, GIVEN TYLENOL FOR LOWER BACK PAIN OF 4/10 WITH GOOD RELIEF, LEAL CATHETER DRAINING WELL, BM X1, WOUND CARE TO ST 2 DECUB TO SACRAL AREA, APPLIED MEPILEX, SINUS TACHYCARDIA ON THE TELE, BP WNL, HX OF HTN, PER DAUGHTER TAKING IMDUR 60 MG BID, (NOT IN MED RECON FILE). PER ID CONTINUE CURRENT IV ABX, ASPIRATION PRECAUTION
--- NOTE | 2018-05-17 07:00 | NUR ---
BUSINESS INTELLIGENCE REPORTING ANALYST OPENING NOTES RECEIVED PATIENT ASLEEP IN BED ABLE TO AROUSE WITH VOICE AND TOUCH. NO SIGNS OR SYMPTOMS OF RESPIRATORY DISTRESS ON 2 LTRS NASAL CANNULA SATURATING 98% OR ACUTE PAIN. LEAL CATH DRAINING CLEAR YELLOW URINE JN PICC SALINE LOCK. ASPIRATION AND SAFETY PRECAUTIONS IN PLACE CALL LIGHT WITHIN REACH WILL CONT TO MONITOR
[2018-05-17 07:15] LABS: BASOPHILS % (AUTO) 0.1 % (0.0-2.0); HEMATOCRIT 26 % (33-45); HEMOGLOBIN 8.7 g/dL (11.5-14.8); LYMPHOCYTES # (AUTO) 0.1 /CMM (0.8-4.8); LYMPHOCYTES % (AUTO) 0.6 % (20.0-44.0); MEAN CORPUSCULAR HGB CONC 34 g/dl (31.0-36.0); MEAN CORPUSCULAR VOLUME 88 fL (82-100); MONOCYTES # (AUTO) 0.3 /CMM (0.1-1.30); MONOCYTES % (AUTO) 2.3 % (2.0-12.0); NEUTROPHILS # (AUTO) 12.3 /CMM (1.8-8.9); PLATELET COUNT (AUTO) 208 /CMM (150-450); RED BLOOD CELL COUNT(AUTO) 2.95 MIL/uL (4.0-5.2); WHITE BLOOD COUNT (AUTO) 12.7 K/uL (4.3-11.0)
[2018-05-17 07:22] LABS: CALCIUM, SERUM 8.7 mg/dL (8.5-10.1); CHLORIDE 94 mmol/L (98-107); CREATININE 0.7 mg/dL (0.6-1.3); GLUCOSE 127 mg/dL (74-106); MAGNESIUM 2.4 mg/dL (1.8-2.4); PHOSPHORUS 3.3 mg/dL (2.5-4.9); POTASSIUM 3.8 mmol/L (3.5-5.1); SODIUM SERUM 139 mmol/L (136-145); UREA NITROGEN, BLOOD 47 mg/dL (7-18)
[2018-05-17 08:06] LABS: CARBON DIOXIDE 45 mmol/L (21-32)
[2018-05-17] MEDS: ENSURE ENLIVE 237 ML LIQUID (VANILLA) PO SCH ×2 (08:25→17:08)
[2018-05-17] MEDS: VORICONAZOLE 200 MG TABLET PO SCH ×2 (08:25→21:30)
[2018-05-17] MEDS: methylPREDNISolone SOD SUCC 125 MG/2ML VIAL IV SCH ×3 (08:25→17:10)
[2018-05-17] MEDS: LACTOBACILLUS RHAMNOSUS GG 1 EACH CAP.SPRINK PO SCH ×2 (08:25→17:10)
[2018-05-17] MEDS: PANTOPRAZOLE 40 MG/PACK PACK GT SCH (08:25)
[2018-05-17] MEDS ORDERED: acetaZOLAMIDE SODIUM 500 MG/VIAL VIAL IV ONE (10:30)
[2018-05-17] MEDS: MAGNESIUM HYDROXIDE 30 ML UDC PO PRN (13:17)
[2018-05-17] MEDS: LEVOFLOXACIN 250 MG /D5W 50 ML 250 MG in PREMIX 1 EA IV SCH (15:15)
--- NOTE | 2018-05-17 19:11 | NUR ---
COLLATERAL SPECIALIST CLOSING NOTES BEDSIDE REPORT GIVEN . PATIENT MORE ALERT THROUGHOUT THE SHIFT. NO SIGNS OR SYMPTOMS OF RESPIRTORY DISTRESS OR ACUTE PAIN NOTED. C/O HEADACHE TYLENOL 650 MG GIVEN. KEPT CLEAN AND DRY REPOSITIONED FOR COMFORT. APPETITE GOOD DAUGHTER AT BEDSIDE. SAFETY AND ASPIRATION PRECAUTIONS IN PLACE BED IN LOW POSITION WILL ENDORSE TO NOC
--- NOTE | 2018-05-17 19:48 | NUR ---
HARD METALS HAND ENGRAVER OPENING NOTES RECEIVED PATIENT IN BED AWAKE, ALERT AND ORIENTED X3, VERBALLY RESPONSIVE, ABLE TO MAKE NEEDS KNOWN. PANAMANIAN SPEAKER. BREATHING EVEN AND UNLABORED. NO SOB NOTED. ON 2LPM OXYGEN VIA NC. DENIES ANY PAIN OR DISCOMFORT. NO FACIAL GRIMACING. RIGHT UPPER ARM PICC LINE INTACT AND PATENT. SKIN DRY AND WARM TO TOUCH. AFEBRILE. PATIENT NOTED WITH LEAL CATH, INTACT AND DRAINING CLEAR YELLOW URINE. SINUS TACH 101 ON TELE MONITOR. PATIENT IN NO DISTRESS. ALL OTHER NEEDS ATTENDED TO. SAFETY MEASURES IN PLACE. CALL LIGHT WITHIN REACH. WILL CONTINUE TO MONITOR.
[2018-05-17] MEDS: ATORVASTATIN 10 MG TABLET PO SCH (21:30)
[2018-05-18] VITALS: BP_SYST 131; BP_SYST 150; BP_DIAS 65; BP_DIAS 71
[2018-05-18] MEDS: IPRATROPIUM NEB FS 0.5 MG/2.5 ML AMPUL.NEB NEB SCH ×6 (02:52→23:41)
[2018-05-18] MEDS: ALBUTEROL FS 2.5 MG/3 ML VIAL.NEB NEB SCH ×6 (02:52→23:41)
[2018-05-18 04:00] VITALS: BP 131/65
--- NOTE | 2018-05-18 06:21 | NUR ---
ECONOMIC RESEARCH ASSISTANT CLOSING NOTES PATIENT RESTING IN BED. NO ACUTE CHANGES THROUGHOUT SHIFT. BREATHING EVEN AND UNLABORED. NO SOB NOTED. ON 2LPM OXYGEN VIA NC. DENIES ANY PAIN OR DISCOMFORT. NO FACIAL GRIMACING. RIGHT UPPER ARM PICC LINE INTACT AND PATENT. SKIN DRY AND WARM TO TOUCH. AFEBRILE. PATIENT WITH LEAL CATH, INTACT AND DRAINING CLEAR YELLOW URINE. SINUS RHYTHM/SINUS TACH 100-103 ON TELE MONITOR. PATIENT IN NO DISTRESS. KEPT CLEAN DRY AND COMFORTABLE. ALL OTHER NEEDS ATTENDED TO. SAFETY MEASURES IN PLACE. CALL LIGHT WITHIN REACH. WILL ENDORSE TO ONCOMING NURSE FOR CRYSTAL.
[2018-05-18 06:34] LABS: BASOPHILS % (AUTO) 0.2 % (0.0-2.0); HEMATOCRIT 28 % (33-45); HEMOGLOBIN 9.1 g/dL (11.5-14.8); LYMPHOCYTES # (AUTO) 0.1 /CMM (0.8-4.8); LYMPHOCYTES % (AUTO) 0.6 % (20.0-44.0); MEAN CORPUSCULAR HGB CONC 33 g/dl (31.0-36.0); MEAN CORPUSCULAR VOLUME 89 fL (82-100); MONOCYTES # (AUTO) 0.4 /CMM (0.1-1.30); MONOCYTES % (AUTO) 3.1 % (2.0-12.0); NEUTROPHILS # (AUTO) 12.1 /CMM (1.8-8.9); NEUTROPHILS % (AUTO) 96.1 % (43.0-81.0); PLATELET COUNT (AUTO) 214 /CMM (150-450); RED BLOOD CELL COUNT(AUTO) 3.15 MIL/uL (4.0-5.2); WHITE BLOOD COUNT (AUTO) 12.6 K/uL (4.3-11.0)
[2018-05-18 06:45] LABS: CHLORIDE 96 mmol/L (98-107); CREATININE 0.7 mg/dL (0.6-1.3); GLUCOSE 131 mg/dL (74-106); POTASSIUM 3.6 mmol/L (3.5-5.1); SODIUM SERUM 141 mmol/L (136-145); UREA NITROGEN, BLOOD 45 mg/dL (7-18)
[2018-05-18 06:48] LABS: CARBON DIOXIDE 43 mmol/L (21-32)
--- NOTE | 2018-05-18 06:59 | NUR ---
MEASUREMENT COORDINATOR NOTES RECEIVED CRITICAL RESULT FOR CO2 OF 43. PAGED EPIC BRICK STACKER, DR. SALAZAR, AND PER AVA FROM [facility], DR. SALAZAR IS ALREADY OFF AT THIS TIME. WILL ENDORSE TO ONCOMING NURSE. PATIENT IN NO DISTRESS. RESTING IN BED.
--- NOTE | 2018-05-18 07:29 | NUR ---
SET UP INSPECTOR OPENING NOTES RECEIVED PATIENT ASLEEP IN BED ON BIPAP ABLE TO AROUSE WITH VOICE AND TOUCH. NO SIGNS OR SYMPTOMS OF RESPIRATORY DISTRESS SATURATING 98% OR ACUTE PAIN.JN PICC SALINE LOCK LEAL CATH DRAINING CLEAR YELLOW URINE JN PICC SALINE LOCK. ASPIRATION AND SAFETY PRECAUTIONS IN PLACE CALL LIGHT WITHIN REACH WILL CONT TO MONITOR
[2018-05-18 08:00] VITALS: BP_SYST 130; BP_SYST 99; BP_DIAS 54; BP_DIAS 68
[2018-05-18] MEDS: LACTOBACILLUS RHAMNOSUS GG 1 EACH CAP.SPRINK PO SCH ×2 (08:25→17:22)
[2018-05-18] MEDS: VORICONAZOLE 200 MG TABLET PO SCH ×2 (08:25→21:05)
[2018-05-18] MEDS: PANTOPRAZOLE 40 MG/PACK PACK GT SCH (08:25)
[2018-05-18] MEDS: ENSURE ENLIVE 237 ML LIQUID (VANILLA) PO SCH ×2 (08:25→17:21)
[2018-05-18] MEDS: methylPREDNISolone SOD SUCC 125 MG/2ML VIAL IV SCH ×3 (08:25→17:20)
[2018-05-18 12:00] VITALS: BP 130/61
[2018-05-18] MEDS: LEVOFLOXACIN 250 MG /D5W 50 ML 250 MG in PREMIX 1 EA IV SCH (15:04)
[2018-05-18 16:00] VITALS: BP 126/61
--- NOTE | 2018-05-18 19:30 | NUR ---
RN NOTE; RECEIVED PT LAYING DOWN IN BED AWAKE AND RESPONSIVE. ST AT 108 ON TELE MONITOR, BREATHING EVENLY. NO SOB. ON O2 AT 2LPM VIA NC YARED WELL NO COUGH NOTED AT THIS TIME. DENIED ANY PAIN OR DISCOMFORT, HOB ELEVATED. NEEDS ATTENDED. BED LOW LOCKED. CALL LIGHT WITHIN REACH. WILL CONT TO MONITOR, Addendum: 05/18/18 at 2000 by WILMER CONRAD RN F/C IN PLACE DRAINING CLEAR YELLOW URINE.
--- NOTE | 2018-05-18 19:40 | NUR ---
GYM ATTENDANT CLOSING NOTES BEDSIDE REPORT GIVEN . PATIENT MORE ALERT THROUGHOUT THE SHIFT. NO SIGNS OR SYMPTOMS OF RESPIRATORY DISTRESS OR ACUTE PAIN NOTED. KEPT CLEAN AND DRY REPOSITIONED FOR COMFORT. APPETITE GOOD DAUGHTER AT BEDSIDE POLST SIGNED BY DAUGHTER AND PLACED IN CONSENT FOLDER. SAFETY AND ASPIRATION PRECAUTIONS IN PLACE BED IN LOW POSITION WILL ENDORSE TO NOC
[2018-05-18 20:00] VITALS: BP 126/64
[2018-05-18] MEDS: ATORVASTATIN 10 MG TABLET PO SCH (21:05)
--- NOTE | 2018-05-18 23:42 | NUR ---
PT PLACED ON NOC BIPAP. RN NOTIFIED. WILL CONTINUE TO MONITOR.
--- NOTE | 2018-05-18 23:45 | NUR ---
PT WAS PLACED ON BIPAP BY RT. ON ONGOING O2 SAT MONITORING . HOLDING O2 SAT OF 99% ON BIPAP. WILL CONT TO MONITOR ,
[2018-05-19] VITALS: BP 121/64
--- NOTE | 2018-05-19 03:04 | NUR ---
PT IN BED W/ BIPAP IN PLACE. BREATHING EVENLY. NAD. WILL CONT TO MONITOR ,
[2018-05-19] MEDS: ALBUTEROL FS 2.5 MG/3 ML VIAL.NEB NEB SCH ×4 (03:40→15:17)
[2018-05-19] MEDS: IPRATROPIUM NEB FS 0.5 MG/2.5 ML AMPUL.NEB NEB SCH ×4 (03:40→15:17)
[2018-05-19 04:00] VITALS: BP 114/52
--- NOTE | 2018-05-19 05:40 | NUR ---
PT TAKEN OFF BIPAP AND PLACED ON 2L NC.
--- NOTE | 2018-05-19 06:21 | NUR ---
PT IN BED AWAKE AND ALERT. OFF OF BIPAP . BREATHING EVENLY. ON O2 AT 2LPM VIA NC TOLERATED WELL. NO OS. NAD . SKIN WARM AND DRY. NO S/S OR C/O PAIN OR DISCOMFORT. NO ACUTE EVENT DURING THE NIGHT. GOOD SKIN CARE AND WOUND CARE RENDERED. CLEANED AND DRIED. ASSISTED W/ REPOSITIONING. NEEDS ATTENDED. BED LOW LOCKED. SRX2. HOB ELEVATED. CALL LIGHT WITHIN REACH,. WILL CONT TO MONITOR AND WILL ENDORSE TO AM SHIFT FOR CRYSTAL. Addendum: 05/19/18 at 0627 by WILMER CONRAD RN SR ON TELE MONITOR,
[2018-05-19 06:28] LABS: BASOPHILS % (AUTO) 0.1 % (0.0-2.0); HEMATOCRIT 27 % (33-45); HEMOGLOBIN 9.1 g/dL (11.5-14.8); LYMPHOCYTES # (AUTO) 0.1 /CMM (0.8-4.8); LYMPHOCYTES % (AUTO) 0.5 % (20.0-44.0); MEAN CORPUSCULAR HGB CONC 34 g/dl (31.0-36.0); MEAN CORPUSCULAR VOLUME 88 fL (82-100); MONOCYTES # (AUTO) 0.4 /CMM (0.1-1.30); MONOCYTES % (AUTO) 2.2 % (2.0-12.0); NEUTROPHILS # (AUTO) 18.3 /CMM (1.8-8.9); NEUTROPHILS % (AUTO) 97.2 % (43.0-81.0); PLATELET COUNT (AUTO) 189 /CMM (150-450); RED BLOOD CELL COUNT(AUTO) 3.08 MIL/uL (4.0-5.2); WHITE BLOOD COUNT (AUTO) 18.8 K/uL (4.3-11.0)
[2018-05-19 06:38] LABS: CALCIUM, SERUM 8.9 mg/dL (8.5-10.1); CHLORIDE 95 mmol/L (98-107); CREATININE 0.5 mg/dL (0.6-1.3); GLUCOSE 120 mg/dL (74-106); POTASSIUM 3.5 mmol/L (3.5-5.1); SODIUM SERUM 138 mmol/L (136-145); UREA NITROGEN, BLOOD 41 mg/dL (7-18)
[2018-05-19 06:41] LABS: CARBON DIOXIDE 41 mmol/L (21-32)
--- NOTE | 2018-05-19 07:21 | NUR ---
SHOP DIRECTOR OPENING NOTES RECEIVED PATIENT ASLEEP IN BED ABLE TO AROUSE WITH VOICE AND TOUCH.MACEDONIAN SPEAKING NO SIGNS OR SYMPTOMS OF RESPIRATORY DISTRESS ON 2 LTRS NASAL CANNULA SATURATING 98% OR ACUTE PAIN SINUS RHYTHM ON THE TELE MONITOR LEAL CATH DRAINING CLEAR YELLOW URINE JN PICC SALINE LOCK. ASPIRATION AND SAFETY PRECAUTIONS IN PLACE CALL LIGHT WITHIN REACH WILL CONT TO MONITOR
[2018-05-19 08:00] VITALS: BP 123/68
[2018-05-19] MEDS: ENSURE ENLIVE 237 ML LIQUID (VANILLA) PO SCH ×2 (08:05→16:38)
[2018-05-19] MEDS: LACTOBACILLUS RHAMNOSUS GG 1 EACH CAP.SPRINK PO SCH ×2 (08:05→16:38)
[2018-05-19] MEDS: PANTOPRAZOLE 40 MG/PACK PACK GT SCH (08:05)
[2018-05-19] MEDS: methylPREDNISolone SOD SUCC 125 MG/2ML VIAL IV SCH ×2 (08:05→13:05)
[2018-05-19] MEDS: VORICONAZOLE 200 MG TABLET PO SCH (08:06)
[2018-05-19 12:00] VITALS: BP 123/68
[2018-05-19] MEDS ORDERED: PRED20TA PO (15:19)
[2018-05-19] MEDS ORDERED: ATOR10TA PO (15:19)
[2018-05-19] MEDS ORDERED: LEVO500T90 PO (15:19)
[2018-05-19] MEDS ORDERED: PANT40SU2 GT (15:19)
[2018-05-19] MEDS ORDERED: VORI200T PO (15:19)
[2018-05-19] MEDS ORDERED: ALLA266C2 TP (15:19)
[2018-05-19] MEDS ORDERED: LACT1CAP72 PO (15:19)
[2018-05-19] MEDS: LEVOFLOXACIN 250 MG /D5W 50 ML 250 MG in PREMIX 1 EA IV SCH (15:56)
[2018-05-19 16:00] VITALS: BP 122/61
--- NOTE | 2018-05-19 16:27 | NUR ---
RN MS NOTES VEST FINISHER DISCHARGE PLAN TO [facility]. DAUGHTER PRASANNA CALLED AND IS ON WAY TO SPEAK WITH VEST FINISHER.
[2018-05-19] MEDS: MAGNESIUM HYDROXIDE 30 ML UDC PO PRN (18:19)
--- NOTE | 2018-05-19 18:44 | NUR ---
RN MS NOTES ATTEMPTED TO CALL [facility] X3 PUT ON HOLD AND THEN TOLD TO CALL BACK AFTER 1900 FOR REPORT. PT IS READY FOR INVESTIGATIVE WRITER. PATIENT A/O X3 KAZAKH SPEAKING NO S/S OF DISTRESS ON 2 LTRS NASAL CANNULA. OR ACUTE PAIN. VITAL SIGNS 122/61 T 98.9 HR 98 RR 19 . PHOTOS TAKEN SKIN INTACT. DAUGHTER AT BEDSIDE ALL EXIT CARE UTILIZED WITH EDUCATION. ALL COPIES GIVEN TO FAMILY.
--- NOTE | 2018-05-19 19:33 | NUR ---
JUNIOR MS DISCHARGE NOTES REPORT GIVEN TO JOHANA PACHECO @ [facility].
[2018-05-20] MEDS ORDERED: methylPREDNISolone SOD SUCC 125 MG/2ML VIAL IV SCH (09:00)
== END 2018-05-19 19:09 | disposition short-term general hospital (02) | DRG 207 ==
LOC: ER 13:40 → ICU 16:42 → TELE-TD 05-13 14:21 → TELE1 05-15 12:49 → MEDSG1 05-19 09:10
PROVIDERS: ADMIT Internal Medicine; ATTEND Student in an Organized Health Care Education/Training Program
PROC: 5A1955Z Respiratory Ventilation, Greater than 96 Consecutive Hours (ICD-10-PCS; principal; 2018-05-03)
PROC: 0BH18EZ Insertion of Endotracheal Airway into Trachea, Via Natural or Artificial Opening Endoscopic (ICD-10-PCS; 2018-05-03)
PROC: 05H533Z Insertion of Infusion Device into Right Subclavian Vein, Percutaneous Approach (ICD-10-PCS; 2018-05-07)
PROC: B546ZZA Ultrasonography of Right Subclavian Vein, Guidance (ICD-10-PCS; 2018-05-07)
PROC: 0BJ08ZZ Inspection of Tracheobronchial Tree, Via Natural or Artificial Opening Endoscopic (ICD-10-PCS; 2018-05-08)
PROC: 30233R1 Transfusion of Nonautologous Platelets into Peripheral Vein, Percutaneous Approach (ICD-10-PCS; 2018-05-11)
PROC: 30233N1 Transfusion of Nonautologous Red Blood Cells into Peripheral Vein, Percutaneous Approach (ICD-10-PCS; 2018-05-11)
DX: J96.22 Acute and chronic respiratory failure with hypercapnia (principal); J15.9 Unspecified bacterial pneumonia; I50.33 Acute on chronic diastolic (congestive) heart failure; N17.0 Acute kidney failure with tubular necrosis; E87.2 Acidosis; J44.1 Chronic obstructive pulmonary disease with (acute) exacerbation; J44.0 Chronic obstructive pulmonary disease with (acute) lower respiratory infection; N39.0 Urinary tract infection, site not specified; J84.9 Interstitial pulmonary disease, unspecified; R04.2 Hemoptysis; E87.3 Alkalosis; E46 Unspecified protein-calorie malnutrition; I25.10 Atherosclerotic heart disease of native coronary artery without angina pectoris; I11.0 Hypertensive heart disease with heart failure; E78.5 Hyperlipidemia, unspecified; E11.9 Type 2 diabetes mellitus without complications; D63.8 Anemia in other chronic diseases classified elsewhere; K21.9 Gastro-esophageal reflux disease without esophagitis; I25.2 Old myocardial infarction; Z88.8 Allergy status to other drugs, medicaments and biological substances; Z91.041 Radiographic dye allergy status; Z79.82 Long term (current) use of aspirin; Z79.51 Long term (current) use of inhaled steroids; L89.150 Pressure ulcer of sacral region, unstageable; M81.0 Age-related osteoporosis without current pathological fracture; Z79.899 Other long term (current) drug therapy; Z87.891 Personal history of nicotine dependence; Z91.19 Patient's noncompliance with other medical treatment and regimen; R29.6 Repeated falls; D50.0 Iron deficiency anemia secondary to blood loss (chronic)
CPT/HCPCS: 31622; 31623; 31720; 36415; 36569; 36600; 70450-TC; 71045-TC; 72170-TC; 73560-TC; 73590-TC; 73620-TC; 80048-TC; 80061-TC; 80076-TC; 81000-TC; 82140-TC; 82803-TC; 83605-TC; 83735-TC; 83880; 84100-TC; 84443-TC; 84484-TC; 85025-TC; 85027-TC; 85610-TC; 85730-TC; 86850-TC; 86921-TC; 87040-TC; 87070-TC; 87081-TC; 87086-TC; 87186-TC; 87400; 92526; 92611-TC; 93307-TC; 94002-TC; 94003-TC; 94760-TC; 94762-TC; 94799-TC; 97110-TC; 97530-TC; A4216; A4217; A6402; A6403; A7526; G0378; G0480; J0330; J1120; J1650; J1940; J1956; J2185; J2543; J2920; J2930; J3475; J3480; J3490; J7030; J7050; J7060; P9016-BL; P9034-BL